=== PATIENT | male | born 1940 | race African-American/Black ===

== ENCOUNTER 2018-09-30 16:34 | Inpatient (IN) | payer MEDICARE, OTHER ==
[~2018-09-30] VITALS: Ht 165.1 cm; Wt 60.8 kg
[~2018-09-30 16:34] MED LIST: AMLODIPINE BESY10 MG ORAL; CLONIDINE 0.2M0.2 MG PO; CLONIDINE HCL0.2 MG PO; NEPHROVITE1 TAB ORAL; NORCO 5-325 TA1 EAC1 ORAL; TAMSULOSIN HCL0.4 MG ORAL
[2018-09-30 16:35] VITALS: BP_SYST 105; BP_SYST 205; BP_DIAS 100
--- NOTE | 2018-09-30 16:35 | NUR ---
ED Nurse Note: Patient arrived ambulatory. No s/sx of distress. with oxygen saturation of 100% on room air. Came in ER for complain of nausea, vomiting x4 today and dizziness that started at around 6AM today. Patient also noted with elevated BP. Denies any form of pain at this time.
--- NOTE | 2018-09-30 17:06 | NUR ---
ED Nurse Note: IV line started and blood drawn and sent to lab. Patient is off unit at this time for CT scan.
[2018-09-30 17:13] LABS: BASOPHILS % (AUTO) 1.5 % (0.0-2.0); EOSINOPHILS % (AUTO) 0.8 % (0.0-3.0); HEMATOCRIT 39.9 % (42.0-52.0); HEMOGLOBIN 12.9 G/DL (14.2-18.0); LYMPHOCYTES % (AUTO) 6.7 % (20.0-45.0); MEAN CORPUSCULAR VOLUME 89 FL (80-99); MONOCYTES % (AUTO) 9.1 % (1.0-10.0); NEUTROPHILS % (AUTO) 81.9 % (45.0-75.0); PLATELET COUNT 217 K/UL (150-450); RED BLOOD COUNT 4.48 M/UL (4.70-6.10); RED CELL DISTRIBUTION WIDTH 14.2 % (11.6-14.8); WHITE BLOOD COUNT 10.7 K/UL (4.8-10.8)
[2018-09-30 17:29] VITALS: BP 210/92
[2018-09-30 17:29] LABS: ANION GAP 15 mmol/L (5-15); BLOOD UREA NITROGEN 36 mg/dL (7-18); CALCIUM 9.2 MG/DL (8.5-10.1); CARBON DIOXIDE 27 MMOL/L (21-32); CHLORIDE 100 MMOL/L (98-107); CREATININE 12.7 MG/DL (0.55-1.30); POTASSIUM 3.7 MMOL/L (3.5-5.1); SODIUM 142 MMOL/L (136-145)
--- NOTE | 2018-09-30 17:38 | NUR ---
ED Nurse Note: ERMD NOTIFIED TROPONIN 0.204
[2018-09-30 17:52] LABS: ALANINE AMINOTRANSFERASE 18 U/L (12-78); ALBUMIN 3.8 G/DL (3.4-5.0); ALBUMIN/GLOBULIN RATIO 0.9 (1.0-2.7); ALKALINE PHOSPHATASE 43 U/L (46-116); ASPARTATE AMINO TRANSFERASE 22 U/L (15-37); BILIRUBIN,TOTAL 0.4 MG/DL (0.2-1.0); CKMB 3.1 NG/ML (0.0-3.6); CREATINE KINASE 293 U/L (26-308)
[2018-09-30] MEDS ORDERED: Labetalol 200mg tab ORAL ONE (18:15)
[2018-09-30 18:39] VITALS: BP 179/94
--- NOTE | 2018-09-30 19:15 | NUR ---
HAND-OFF: Report given to Dragan Stearns RN. Patient BP improved. No s/sx of distress. HR improved although still SR:[address]:101. Current BP:152/80.
--- NOTE | 2018-09-30 19:18 | NUR ---
ED Nurse Note: Received patient from ESA Singh. Pt sitting comfortably. AO4. NAD VSS. Family at bedside
[2018-09-30 19:40] VITALS: BP 176/96
--- NOTE | 2018-09-30 19:40 | NUR ---
NURSE NOTES: Received patient from Dragan Stearns RN via [facility]. Patients shows no signs of acute distress. Respiration even and non labored on room air. IV line patent and intact. VS stable. Placed on monitor and storage bin tender. Oriented to room and unit. Bed in lowest position. All needs attended and met. Call light within reach. Will notify MD for admission order
--- NOTE | 2018-09-30 19:40 | NUR ---
TRANSFER TO FLOOR: Patient transferred to Telemetry 220-2 as ordered, per MD Winifred . Report given to ESA Naidu. Belongings and medications given to receiveing RN. Patient in stable condition.
--- NOTE | 2018-09-30 20:07 | Emergency Room Report ---
History of Present Illness General Chief Complaint: Hypertension Source: Patient Present Illness Allergies: Coded Allergies: No Known Allergies (Unverified , 06/16/14) Patient History Past Medical History: HTN, renal disease, dialysis Past Surgical History: none Pertinent Family History: none Social History: Denies: smoking, alcohol use, drug use Immunizations: UTD Reviewed Nursing Documentation: PMH: Agreed; PSxH: Agreed Nursing Documentation-PMH Past Medical History: No History, Except For Hx Cardiac Problems: Yes Hx Hypertension: Yes Hx Cancer: No Hx Gastrointestinal Problems: No Hx Dialysis: Yes - ([id number]), SHUNT LEFT UPPER ARM Hx Neurological Problems: No Review of Systems All Other Systems: negative except mentioned in HPI Physical Exam Vital Signs Date Time Temp Pulse Resp B/P (MAP) Pulse Ox O2 Delivery O2 Flow Rate FiO2 09/30/18 16:26 97.7 100 20 220/100 96 Room Air Sp02 EP Interpretation: reviewed, normal General Appearance: no apparent distress, alert, GCS 15, non-toxic Head: normocephalic, atraumatic Eyes: bilateral eye normal inspection, bilateral eye PERRL ENT: hearing grossly normal, normal pharynx, no angioedema, normal voice Neck: full range of motion, supple/symm/no masses Respiratory: chest non-tender, lungs clear, normal breath sounds, speaking full sentences Cardiovascular #1: regular rate, rhythm, no edema Cardiovascular #2: 2+ carotid (R), 2+ carotid (L), 2+ radial (R), 2+ radial (L) , 2+ dorsalis pedis (R), 2+ dorsalis pedis (L) Gastrointestinal: normal bowel sounds, non tender, soft, non-distended, no guarding, no rebound Rectal: deferred Genitourinary: normal inspection, no CVA tenderness Musculoskeletal: back normal, gait/station normal, normal range of motion, non- tender Neurologic: alert, oriented x3, responsive, motor strength/tone normal, sensory intact, speech normal Psychiatric: judgement/insight normal, memory normal, mood/affect normal, no suicidal/homicidal ideation Reflexes: 3+ bicep (R), 3+ bicep (L), 3+ tricep (R), 3+ tricep (L), 3+ knee (R) , 3+ knee (L) Skin: normal color, no rash, warm/dry, well hydrated Lymphatic: no adenopathy Medical Decision Making Diagnostic Impression: Primary Impression: End-stage renal disease Additional Impression: Hypertension Qualified Codes: I10 - Essential (primary) hypertension ER Course Hospital Course 78 yo M presents with nausea, elevated BP, missed dialysis Differential diagnoses include: TN/unstable angina, arrythmia, dehydration, CVA/ TIA Clinical course Patient placed on stretcher. on tableau architect. After initial history and physical I ordered labs, EKG, chest x-ray, zofran, CT labs reviewed- no leukocytosis, hemoglobin/hematocrit ok, BUN/Cr elevated, trop 0.204 EKG- sinus tachycardia, no acute ischemic changes interpreted by me Chest x-ray- no acute process CT brain-unremarkable Patient initially given hydralazine, labetalol with blood pressure and heart rate improved. Patient has no chest pain. No acute ischemic changes on EKG. Troponin elevation likely troponin leak Case discussed with Dr. Harrington and he agreed to accept the patient to his service for further care and support I. I feel this is a highly complex case requiring extensive working including EKG/Rhythm strip, Xray/CT/US, Blood/urine lab work, repeat exams while in ED, and administration of strong opiates/narcotics for pain control, admission to hospital or close patient follow up. Diagnosis - ESRD, hypertension admitted to telemetry in serious condition Labs Test 09/30/18 16:54 White Blood Count 10.7 K/UL (4.8-10.8) Red Blood Count 4.48 M/UL (4.70-6.10) Hemoglobin 12.9 G/DL (14.2-18.0) Hematocrit 39.9 % (42.0-52.0) Mean Corpuscular Volume 89 FL (80-99) Mean Corpuscular Hemoglobin 28.8 PG (27.0-31.0) Mean Corpuscular Hemoglobin Concent 32.3 G/DL (32.0-36.0) Red Cell Distribution Width 14.2 % (11.6-14.8) Platelet Count 217 K/UL (150-450) Mean Platelet Volume 6.9 FL (6.5-10.1) Neutrophils (%) (Auto) 81.9 % (45.0-75.0) Lymphocytes (%) (Auto) 6.7 % (20.0-45.0) Monocytes (%) (Auto) 9.1 % (1.0-10.0) Eosinophils (%) (Auto) 0.8 % (0.0-3.0) Basophils (%) (Auto) 1.5 % (0.0-2.0) Sodium Level 142 MMOL/L (136-145) Potassium Level 3.7 MMOL/L (3.5-5.1) Chloride Level 100 MMOL/L (98-107) Carbon Dioxide Level 27 MMOL/L (21-32) Anion Gap 15 mmol/L (5-15) Blood Urea Nitrogen 36 mg/dL (7-18) Creatinine 12.7 MG/DL (0.55-1.30) Estimat Glomerular Filtration Rate mL/min (>60) Glucose Level 130 MG/DL (74-106) Calcium Level 9.2 MG/DL (8.5-10.1) Total Bilirubin 0.4 MG/DL (0.2-1.0) Aspartate Amino Transf (AST/SGOT) 22 U/L (15-37) Alanine Aminotransferase (ALT/SGPT) 18 U/L (12-78) Alkaline Phosphatase 43 U/L (46-116) Total Creatine Kinase 293 U/L (26-308) Creatine Kinase MB 3.1 NG/ML (0.0-3.6) Creatine Kinase MB Relative Index 1.0 Troponin I 0.204 ng/mL (0.000-0.056) Pro-B-Type Natriuretic Peptide 79481 pg/mL (0-125) Total Protein 7.8 G/DL (6.4-8.2) Albumin 3.8 G/DL (3.4-5.0) Globulin 4.0 g/dL Albumin/Globulin Ratio 0.9 (1.0-2.7) EKG Diagnostic Results Rate: tachycardiac Rhythm: NSR ST Segments: no acute changes ASA given to the pt in ED: No Rhythm Strip Diag. Results EP Interpretation: yes Rhythm: NSR, no PVC's, no ectopy Chest X-Ray Diagnostic Results Chest X-Ray Diagnostic Results : Chest X-Ray Ordered: Yes # of Views/Limited/Complete: 1 View Indication: Other EP Interpretation: Yes Interpretation: no consolidation, no effusion, no pneumothorax, no acute cardiopulmonary disease Impression: No acute disease Electronically Signed by: Electronically signed by El Young MD CT/MRI/US Diagnostic Results CT/MRI/US Diagnostic Results : Imaging Test Ordered: CT Head Impression no acute process Last Vital Signs Date Time Temp Pulse Resp B/P (MAP) Pulse Ox O2 Delivery O2 Flow Rate FiO2 09/30/18 18:39 111 20 179/94 100 Room Air 09/30/18 16:35 97.7 Status: improved Disposition: ADMITTED INPATIENT Condition: Serious Referrals: Richmond David MD (PCP) El Young MD Sep 30, 2018 20:07
--- NOTE | 2018-09-30 20:31 | NUR ---
NURSE NOTES: Admission orders received and carried out.
[2018-09-30] MEDS ORDERED: Lomotil 2.5mg tab ORAL PRN (21:00)
[2018-09-30] MEDS ORDERED: Norco 5mg/325mg tab ORAL PRN (21:00)
[2018-09-30] MEDS ORDERED: Acetaminophen 500mg (ES) tab ORAL PRN (21:00)
[2018-09-30] MEDS: Labetalol 200mg tab ORAL SCH (21:32)
[2018-09-30] MEDS: Heparin 5000 units/ml inj SUBQ SCH (21:33)
[2018-10-01] VITALS (7 sets, daily range): BP systolic 150–173; BP diastolic 82–100
[2018-10-01] MEDS ORDERED: Heparin Sod 1000 units/ml 10ml IV PRN
--- NOTE | 2018-10-01 04:20 | NUR ---
NURSE NOTES: Called and left a message for Dr. Monson regarding patients current BP 183/95, pulse 83. Awaiting call back.
--- NOTE | 2018-10-01 07:50 | NUR ---
HAND-OFF: Report given to ESA Montoya.
--- NOTE | 2018-10-01 07:55 | NUR ---
NURSE NOTES: Received patient from ESA Naidu in bed resting with no signs of acute distress. Respiration even and unlabored. Patient is on room air. IV line patent and intact. alarm security or surveillance monitor in place. Bed in lowest position. Call light is within reach. Will continue with the plan of care.
[2018-10-01 08:30] LABS: BASOPHILS % (AUTO) 0.9 % (0.0-2.0); EOSINOPHILS % (AUTO) 0.6 % (0.0-3.0); HEMATOCRIT 37.9 % (42.0-52.0); HEMOGLOBIN 12.4 G/DL (14.2-18.0); MEAN CORPUSCULAR VOLUME 89 FL (80-99); MONOCYTES % (AUTO) 7.3 % (1.0-10.0); NEUTROPHILS % (AUTO) 83.2 % (45.0-75.0); PLATELET COUNT 184 K/UL (150-450); RED BLOOD COUNT 4.27 M/UL (4.70-6.10); RED CELL DISTRIBUTION WIDTH 14.6 % (11.6-14.8); WHITE BLOOD COUNT 8.7 K/UL (4.8-10.8)
--- NOTE | 2018-10-01 08:40 | Diagnostic Imaging Report ---
Indications: Dizziness, nausea, vomiting, hypertension Technique: Spiral acquisitions obtained through the brain. Angled axial and coronal 5 x 5 mm slices were reconstructed. Total dose length product 1383.12 mGycm. CTDI vol(s) 70.38 mGy. Dose reduction achieved using automated exposure control Comparison: None. Findings: There is age-related enlargement of the ventricles and extra axial CSF spaces. There is periventricular deep white matter low-attenuation, consistent with chronic ischemic change. 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 No acute intracranial hemorrhage or edema. No mass effect or midline shift. The calvarium is intact. The mastoids are clear. The sinuses are clear. The orbits demonstrate evidence of prior bilateral cataract surgery. Impression: Chronic and age-related changes. Negative for acute intracranial bleed or mass effect This agrees with the preliminary interpretation provided overnight by Dr. Mora The CT scanner at [facility] is accredited by the [employer] and the scans are performed using protocols designed to limit radiation exposure to as low as reasonably achievable to attain images of sufficient resolution adequate for diagnostic evaluation.
--- NOTE | 2018-10-01 08:42 | Diagnostic Imaging Report ---
Indication: Chest pain Technique: One view of the chest Comparison: none Findings: The heart is borderline enlarged with a left ventricular hypertrophy configuration. Lungs and pleural spaces are clear. The aorta is tortuous and ectatic. Surgical clips are seen in the left axilla Impression: No acute process Borderline cardiomegaly
[2018-10-01] MEDS: Labetalol 200mg tab ORAL SCH ×2 (09:05→21:08)
[2018-10-01] MEDS: Heparin 5000 units/ml inj SUBQ SCH ×2 (09:07→21:08)
[2018-10-01 09:38] LABS: ANION GAP 20 mmol/L (5-15); BLOOD UREA NITROGEN 42 mg/dL (7-18); CALCIUM 8.8 MG/DL (8.5-10.1); CARBON DIOXIDE 20 MMOL/L (21-32); CHLORIDE 100 MMOL/L (98-107); CREATININE 14.3 MG/DL (0.55-1.30); POTASSIUM 3.9 MMOL/L (3.5-5.1); SODIUM 140 MMOL/L (136-145)
[2018-10-01] MEDS: Milk of Magnesia 30ml Ud ORAL SCH ×2 (11:22→21:09)
[2018-10-01] MEDS: Sennosides 8.6mg tab ORAL SCH ×2 (11:22→21:08)
--- NOTE | 2018-10-01 12:00 | NUR ---
Patient's BP is elevated 173/90. aware. Will continue to monitor.
--- NOTE | 2018-10-01 14:10 | GI Initial Consult Note ---
History of Present Illness General Date patient seen: Oct 01, 2018 Time patient seen: 14:08 Reason for Hospitalization: Hypertension Referring physician: MORENO Reason for Consultation: Abdominal pain Present Illness HPI GI consulted for reported abdominal pain. Patient seen, awake alert and oriented x4 with no active signs or symptoms of nausea vomiting or diarrhea. According to the patient, he does not have abdominal pain instead states that he has an upset stomach after p.o. intake. Patient denies any emesis, hematemesis or coffee-ground. In addition the patient has complaint of constipation. Abdomen is soft, nontender, nondistended. Patient currently is pending an ultrasound. Labs reviewed, patient presents today with normocytic anemia and elevated troponin levels. His last endoscopy and colonoscopy was approximately 3-4 years ago in which the patient states was unremarkable. Home Meds Reported Medications Hydrocodone Bit/Acetaminophen 5-325* (NORCO 5-325 TABLET*) 1 Each Tablet, 1 TAB ORAL Q4H PRN for For Pain, #30 TAB 1 Refill 07/28/15 Amlodipine Besylate* (AMLODIPINE BESYLATE*) 10 Mg Tablet, 10 MG ORAL DAILY, TAB 07/26/15 Tamsulosin Hcl (TAMSULOSIN HCL*) 0.4 Mg Cap.er.24h, 0.4 MG ORAL BEDTIME, CAP 07/26/15 Vitamin B Cmplx/Vit C/Folic AC (Nephro-Manan Tablet) 1 Tab Tab, 1 TAB ORAL DAILY , #30 TAB 0 Refills 07/26/15 Clonidine HCl (Clonidine HCl) 0.2 Mg Tab, 0.2 MG PO QID, TAB 07/26/15 Med list reviewed/reconciled: Yes Allergies: Coded Allergies: No Known Allergies (Unverified , 06/16/14) Patient History History Provided By: Patient, Medical Record PMH Narrative End-stage renal disease. Hypertensive heart disease. Past Medical History: HTN, renal disease, dialysis Past Surgical History: none Pertinent Family History: none Social History: Denies: smoking, alcohol use, drug use Immunizations: UTD Reviewed Nursing Documentation: PMH: Agreed; PSxH: Agreed Nursing Documentation-PM Past Medical History: No History, Except For Hx Cardiac Problems: Yes Hx Hypertension: Yes Hx Cancer: No Hx Gastrointestinal Problems: No Hx Dialysis: Yes - ([id number]), SHUNT LEFT UPPER ARM Hx Neurological Problems: No Social History: Denies: smoking, alcohol use, drug use, other Review of Systems All Other Systems: negative except mentioned in HPI Physical Exam Vital Signs Date Time Temp Pulse Resp B/P (MAP) Pulse Ox O2 Delivery O2 Flow Rate FiO2 09/30/18 16:26 97.7 100 20 220/100 96 Room Air Sp02 EP Interpretation: reviewed, normal Labs Laboratory Tests Test 09/30/18 16:54 10/01/18 07:30 White Blood Count 10.7 K/UL (4.8-10.8) 8.7 K/UL (4.8-10.8) Red Blood Count 4.48 M/UL (4.70-6.10) L 4.27 M/UL (4.70-6.10) L Hemoglobin 12.9 G/DL (14.2-18.0) L 12.4 G/DL (14.2-18.0) L Hematocrit 39.9 % (42.0-52.0) L 37.9 % (42.0-52.0) L Mean Corpuscular Volume 89 FL (80-99) 89 FL (80-99) Mean Corpuscular Hemoglobin 28.8 PG (27.0-31.0) 29.1 PG (27.0-31.0) Mean Corpuscular Hemoglobin Concent 32.3 G/DL (32.0-36.0) 32.7 G/DL (32.0-36.0) Red Cell Distribution Width 14.2 % (11.6-14.8) 14.6 % (11.6-14.8) Platelet Count 217 K/UL (150-450) 184 K/UL (150-450) Mean Platelet Volume 6.9 FL (6.5-10.1) 7.0 FL (6.5-10.1) Neutrophils (%) (Auto) 81.9 % (45.0-75.0) H 83.2 % (45.0-75.0) H Lymphocytes (%) (Auto) 6.7 % (20.0-45.0) L 8.0 % (20.0-45.0) L Monocytes (%) (Auto) 9.1 % (1.0-10.0) 7.3 % (1.0-10.0) Eosinophils (%) (Auto) 0.8 % (0.0-3.0) 0.6 % (0.0-3.0) Basophils (%) (Auto) 1.5 % (0.0-2.0) 0.9 % (0.0-2.0) Sodium Level 142 MMOL/L (136-145) 140 MMOL/L (136-145) Potassium Level 3.7 MMOL/L (3.5-5.1) 3.9 MMOL/L (3.5-5.1) Chloride Level 100 MMOL/L (98-107) 100 MMOL/L (98-107) Carbon Dioxide Level 27 MMOL/L (21-32) 20 MMOL/L (21-32) L Anion Gap 15 mmol/L (5-15) 20 mmol/L (5-15) H Blood Urea Nitrogen 36 mg/dL (7-18) H 42 mg/dL (7-18) H Creatinine 12.7 MG/DL (0.55-1.30) H 14.3 MG/DL (0.55-1.30) H Estimat Glomerular Filtration Rate mL/min (>60) mL/min (>60) Glucose Level 130 MG/DL (74-106) H 107 MG/DL (74-106) H Calcium Level 9.2 MG/DL (8.5-10.1) 8.8 MG/DL (8.5-10.1) Total Bilirubin 0.4 MG/DL (0.2-1.0) Aspartate Amino Transf (AST/SGOT) 22 U/L (15-37) Alanine Aminotransferase (ALT/SGPT) 18 U/L (12-78) Alkaline Phosphatase 43 U/L (46-116) L Total Creatine Kinase 293 U/L (26-308) Creatine Kinase MB 3.1 NG/ML (0.0-3.6) Creatine Kinase MB Relative Index 1.0 Troponin I 0.204 ng/mL (0.000-0.056) Pro-B-Type Natriuretic Peptide 30135 pg/mL (0-125) H Total Protein 7.8 G/DL (6.4-8.2) Albumin 3.8 G/DL (3.4-5.0) Globulin 4.0 g/dL Albumin/Globulin Ratio 0.9 (1.0-2.7) L General Appearance: well appearing, no apparent distress, alert Head: normocephalic EENT: PERRL/EOMI, normal ENT inspection Neck: supple Respiratory: normal breath sounds, no respiratory distress Cardiovascular: normal rate Gastrointestinal: normal inspection, non tender, soft, normal bowel sounds, non -distended Rectal: deferred Genitourinary: deferred Musculoskeletal: normal inspection, back normal Neurologic: normal inspection, alert, oriented x3, responsive Psychiatric: normal inspection, judgement/insight normal, memory normal Skin: normal inspection, normal color, no rash, warm/dry, palpation normal, well hydrated Lymphatic: normal inspection, no adenopathy Current Medications Current Medications Medications (Trade) Dose Ordered Sig/Roel Route PRN Reason Start Time Stop Time Status Last Admin Dose Admin Acetaminophen (Tylenol) 500 mg Q6H PRN ORAL Mild Pain/Temp > 100.5 09/30/18 21:00 10/30/18 20:59 Acetaminophen/ Hydrocodone Bitart ([place] 5/325) 1 tab Q6H PRN ORAL pain 4-10 09/30/18 21:00 10/07/18 20:59 Diphenoxylate HCl/ Atropine (Lomotil) 2.5 mg Q6H PRN ORAL Diarrhea 09/30/18 21:00 10/30/18 20:59 Heparin Sodium (Porcine) (Heparin 5000 units/ml) 5,000 units EVERY 12 HOURS SUBQ 09/30/18 21:00 10/30/18 20:59 10/01/18 09:07 Heparin Sodium (Porcine) (Heparin Sod 1000 units/ml 10ml) 2,000 unit ONCE PRN IV dialysis 10/01/18 00:00 10/01/18 23:59 Labetalol HCl (Normodyne) 500 mg Q12HR ORAL 10/01/18 21:00 10/30/18 20:59 Magnesium Hydroxide (Mom) 30 ml TID ORAL 10/01/18 12:00 10/31/18 11:59 10/01/18 11:22 Ondansetron HCl (Zofran) 4 mg Q6H PRN IVP Nausea & Vomiting 09/30/18 21:00 10/30/18 20:59 Sennosides (Senokot) 8.6 mg BID ORAL 10/01/18 11:15 10/31/18 11:14 10/01/18 11:22 Sodium Chloride 1,000 ml @ 500 mls/hr Q2H PRN IVLG sbp<90 during hd 10/01/18 00:00 10/01/18 23:59 GI: Plan Problems: (1) Constipation (2) End-stage renal disease (3) Iron deficiency anemia secondary to blood loss (chronic) (4) Dialysis AV fistula malfunction (5) ESRD needing dialysis Plan Patient will be given GI cocktail as needed for his dyspepsia. Continue Senokot twice daily as ordered Monitor for normal bowel movements anemia work up OB stool r/o GI bleed monitor H&H, prn transfusions bowel regime ppi fu labs Discussed with Dr. Gregg. Thank you for this patient referral, we will follow. The patient was seen and examined at bedside and all new and available data was reviewed in the patients chart. I agree with the above findings, impression and plan. (Patient seen earlier today. Signature stamp does not reflect patient encounter time.). - MD Graciela GomezA[facility]PR[facility] ARCHITECT Oct 01, 2018 14:10
[2018-10-01] MEDS ORDERED: GI Cocktail 50ml ORAL PRN ×2 (15:00→15:30)
--- NOTE | 2018-10-01 15:15 | History and Physical Report ---
DATE OF ADMISSION: 09/30/2018 CHIEF COMPLAINT: Upper epigastric pain and chest discomfort with belching. HISTORY OF PRESENT ILLNESS: This is an 78-year-old male who is on dialysis every Sunday, Sunday, Sunday. The patient started dialyzing with me this week. He has multiple medical problems. The patient called my office requesting to be admitted for intolerable upper abdominal pain with chest pressure related to inability to defecate with constipation. He presented to the emergency department last night. PAST MEDICAL HISTORY: 1. End-stage renal failure, on dialysis every Sunday, Sunday, Sunday. 2. Hypertensive cardiovascular disease. MEDICATIONS: [place] p.r.n., amlodipine, clonidine, tamsulosin, vitamin B. FAMILY HISTORY: Unremarkable. REVIEW OF SYSTEMS: HEENT: Hearing and eyesight are normal. ENDOCRINE: No history of diabetes, thyroid, or adrenal problems. RESPIRATORY: Denies shortness of breath, cough, or hemoptysis. CARDIOVASCULAR: He denies chest pain or palpitations. GASTROINTESTINAL: Please refer to history of present illness. NEUROLOGIC: No history of stroke, syncope, or Parkinson disease. PHYSICAL EXAMINATION: GENERAL: This is an elderly, slender male who is in severe abdominal pain. VITAL SIGNS: Blood pressure 170/93, pulse 85 and regular, respirations 20, and temperature 97 oral. HEENT: The head is normocephalic and atraumatic. Pupils are equal, round, and reactive to light and accommodation consensually. NECK: Supple. Trachea midline. There was no lymphadenopathy or thyromegaly. LUNGS: Clear to auscultation and percussion. HEART: Regular rate and rhythm without rubs, murmurs, or gallops. ABDOMEN: Soft and nontender. Bowel sounds were active. EXTREMITIES: No clubbing, cyanosis, or edema. He has a left upper arm tortuous AV fistula. LABORATORY AND ANCILLARY DATA: CBC within normal limits. Serum chemistry, BUN 42, creatinine 14.3. Troponin level 0.204. EKG sinus tachycardia with premature atrial complexes, inferior infarct, age undetermined. Imaging reports, head CT, no acute disease. Chest x-ray, no acute process. ASSESSMENT: 1. Obstipation. 2. End-stage renal failure, on dialysis every Sunday, Sunday, Sunday. 3. Hypertensive cardiovascular disease. PLAN: 1. Cathartic agents. 2. Consider GI consult. 3. Control blood pressure. 4. Hemodialysis. Richmond David M.D. DR: SHEILA JOB#: [id number] CC:
--- NOTE | 2018-10-01 16:54 | Diagnostic Imaging Report ---
Indication: Abdominal pain, abnormal renal function tests, dialysis patient Technique: Oscar-scale and duplex images of the upper abdomen were obtained. Doppler interrogation of the hepatic and pancreatic vessels. Comparison: none Findings: Gallbladder is unremarkable, without stones, wall thickening, nor pericholecystic fluid. Sonographic Galeas's sign is negative. Common bile duct measures 2 mm in diameter. No intrahepatic biliary ductal dilatation. Liver demonstrates normal echogenicity, no focal abnormality. Portal vein and hepatic veins are patent. Pancreas is incompletely visualized due to body habitus, visualized portions are unremarkable. Spleen is unremarkable. Left kidney measures 9.8 cm in length. Right kidney measures 10.2 cm length. Both kidneys demonstrate increased echogenicity There is no hydronephrosis. There are bilateral renal cysts . Non-aneurysmal abdominal aorta . No free intraperitoneal fluid Impression: Negative for gallstones or dilated ducts Bilateral increased renal echogenicity, consistent with none history of chronic renal disease Incidental finding bilateral renal cysts Note inability to visualize portions of the pancreas
--- NOTE | 2018-10-01 18:45 | NUR ---
CASE MANAGEMENT: REVIEW 78/F BIBA FROM CC: HYPERTENSION SI: HYPERTENSIVE URGENCY . ESRD T 98.2 HR RR 85 RR 20 BP 220/100 SAT 96% ROOM AIR BUN 36 CR 12.7 ALK 43 TROPONIN I 0.201 BNP 06286 IS: HYDRALAZINE IV X1 LABETALOL PO X1 PATIENT ADMITTED TO TELEMETRY UNIT 09/30/2018 DCP: PATIENT IS FROM HOME
--- NOTE | 2018-10-01 19:30 | NUR ---
NURSE NOTES: Report received from Lindsay SEE. Pt is resting in bed in stable condition. Pt is awake, alert, and oriented x4. Pt is on room air and breathing is even and unlabored. No acute distress noted. IV site is asymptomatic, patent, and intact. AV shunt noted in DANIE. security system analyst at bedside, Young, and pt is currently receiving HD per orders. Bed is placed in lowest position with brake engaged, side rails up x3, and bed alarm on. Call light and side table are within reach. Will continue to monitor.
--- NOTE | 2018-10-01 19:48 | NUR ---
HAND-OFF: Report given to ESA Humphrey. Patient is in stable condition.
--- NOTE | 2018-10-01 21:00 | NUR ---
NURSE NOTES: Per Presley, HD RN, 2L out during dialysis today.
[2018-10-02] VITALS: BP 156/80
--- NOTE | 2018-10-02 | NUR ---
NURSE NOTES: OB stool collected and taken to lab.
[2018-10-02 04:00] VITALS: BP 139/82
--- NOTE | 2018-10-02 07:28 | NUR ---
HAND-OFF: Report given to Lindsay SEE. Pt is resting in bed in stable condition. No acute distress noted. Endorsed plan of care.
--- NOTE | 2018-10-02 07:30 | NUR ---
NURSE NOTES: Received patient from ESA Humphrey in bed alert, awake and oriented X4. Denies any pain. no s/s of SOB, or any acute distress. groundwater monitoring technician in place. IV is intact and patent. Bed is in lowest position, bedside rails up X2, brakes engaged for safety. Call light is within reach. Will continue with the plan of care.
[2018-10-02 08:00] VITALS: BP 149/73
[2018-10-02] MEDS: Milk of Magnesia 30ml Ud ORAL SCH ×3 (08:17→18:54)
[2018-10-02] MEDS: Labetalol 200mg tab ORAL SCH ×2 (08:17→21:39)
[2018-10-02] MEDS: Sennosides 8.6mg tab ORAL SCH ×2 (08:17→18:54)
[2018-10-02] MEDS: Heparin 5000 units/ml inj SUBQ SCH ×2 (08:19→21:36)
[2018-10-02 09:03] LABS: ALANINE AMINOTRANSFERASE 13 U/L (12-78); ALBUMIN 3.7 G/DL (3.4-5.0); ALBUMIN/GLOBULIN RATIO 0.8 (1.0-2.7); ALKALINE PHOSPHATASE 52 U/L (46-116); ANION GAP 13 mmol/L (5-15); ASPARTATE AMINO TRANSFERASE 28 U/L (15-37); BILIRUBIN,TOTAL 0.5 MG/DL (0.2-1.0); BLOOD UREA NITROGEN 27 mg/dL (7-18); CALCIUM 9.3 MG/DL (8.5-10.1); CARBON DIOXIDE 29 MMOL/L (21-32); CHLORIDE 99 MMOL/L (98-107); CREATININE 10.6 MG/DL (0.55-1.30); FERRITIN 695 NG/ML (8-388); PHOSPHORUS 4.7 MG/DL (2.5-4.9); SODIUM 140 MMOL/L (136-145)
[2018-10-02 09:16] LABS: % IRON SATURATION 46 % (15-50); IRON 84 ug/dL (50-175); TOTAL IRON BINDING CAPACITY 182 ug/dL (250-450)
[2018-10-02 10:13] LABS: BASOPHILS % (AUTO) 0.8 % (0.0-2.0); HEMATOCRIT 40.8 % (42.0-52.0); LYMPHOCYTES % (AUTO) 10.5 % (20.0-45.0); MEAN CORPUSCULAR VOLUME 89 FL (80-99); MONOCYTES % (AUTO) 7.4 % (1.0-10.0); NEUTROPHILS % (AUTO) 80.4 % (45.0-75.0); PLATELET COUNT 223 K/UL (150-450); RED BLOOD COUNT 4.58 M/UL (4.70-6.10); RED CELL DISTRIBUTION WIDTH 14.5 % (11.6-14.8); WHITE BLOOD COUNT 7.6 K/UL (4.8-10.8)
--- NOTE | 2018-10-02 10:41 | Nephrology Progress Note ---
Assessment/Plan Plan Abd. Pain - w/u so far negative. Seen by GI. Planning endoscopies. ESRD - HD tomorrow. Subjective Subjective Had 2 BMs. Feeling better. Still has abd pain. No bleeding. Objective Objective Last 24 Hour Vital Signs Date Time Temp Pulse Resp B/P (MAP) Pulse Ox O2 Delivery O2 Flow Rate FiO2 10/02/18 09:00 Room Air 10/02/18 08:17 69 149/73 10/02/18 08:00 97.9 69 20 149/73 (98) 98 10/02/18 08:00 65 10/02/18 04:00 97.9 74 20 139/82 (101) 99 10/02/18 04:00 71 10/02/18 00:00 98.6 60 20 156/80 (105) 95 10/02/18 00:00 64 10/01/18 21:08 62 150/82 10/01/18 21:00 Room Air 10/01/18 20:00 97.0 62 20 150/82 (104) 100 10/01/18 20:00 79 10/01/18 16:00 98.0 79 20 173/90 (117) 97 10/01/18 16:00 79 10/01/18 12:00 79 10/01/18 12:00 98.2 73 20 170/89 (116) 100 Intake and Output 10/01/18 10/02/18 19:00 07:00 Intake Total 360 ml 120 ml Balance 360 ml 120 ml Intake Oral 360 ml 120 ml # Bowel Movements 1 1 Laboratory Tests 10/02/18 00:00: Stool Occult Blood [Pending] 10/02/18 07:49: White Blood Count 7.6, Red Blood Count 4.58L, Hemoglobin 13.0L, Hematocrit 40.8L , Mean Corpuscular Volume 89, Mean Corpuscular Hemoglobin 28.5, Mean Corpuscular Hemoglobin Concent 32.0, Red Cell Distribution Width 14.5, Platelet Count 223, Mean Platelet Volume 7.5, Neutrophils (%) (Auto) 80.4H, Lymphocytes ( %) (Auto) 10.5L, Monocytes (%) (Auto) 7.4, Eosinophils (%) (Auto) 1.0, Basophils (%) (Auto) 0.8, Reticulocyte Count [Pending], Prothrombin Time 10.7, Prothromb Time International Ratio 1.0, Activated Partial Thromboplast Time 34H , Sodium Level 140, Potassium Level 4.0, Chloride Level 99, Carbon Dioxide Level 29, Anion Gap 13, Blood Urea Nitrogen 27H, Creatinine 10.6H, Estimat Glomerular Filtration Rate , Glucose Level 123H, Calcium Level 9.3, Phosphorus Level 4.7, Magnesium Level 2.8H, Iron Level 84, Total Iron Binding Capacity 182L , Percent Iron Saturation 46, Unsaturated Iron Binding 98L, Ferritin 695H, Total Bilirubin 0.5, Aspartate Amino Transf (AST/SGOT) 28, Alanine Aminotransferase (ALT/SGPT) 13, Alkaline Phosphatase 52, Total Protein 8.2, Albumin 3.7, Globulin 4.5, Albumin/Globulin Ratio 0.8L, Carcinoembryonic Antigen [Pending], Vitamin B12 Level 904, Folate 9.2, Thyroid Stimulating Hormone (TSH) 2.217, Free Thyroxine 0.97 Height (Feet): 5 Height (Inches): 8.00 Weight (Pounds): 134 Objective Slender. NAD AVSS CV RR Lungs CTA Abd SNT. BS + E No CCE Richmond David MD Oct 02, 2018 10:41
[2018-10-02] MEDS ORDERED: Heparin Sod 1000 units/ml 10ml IV PRN (10:46)
[2018-10-02 12:00] VITALS: BP 135/78
--- NOTE | 2018-10-02 13:09 | GI Progress Note ---
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 Gregg Assessment/Plan OB stool negative Abdominal pain unknown etiology EGD scheduled for tomorrow. N.p.o. at midnight Hold all blood thinners tonight Patient will be given GI cocktail as needed for his dyspepsia. Continue Senokot twice daily as ordered Monitor for normal bowel movements monitor H&H, prn transfusions bowel regime ppi fu labs The patient was seen and examined at bedside and all new and available data was reviewed in the patients chart. I agree with the above findings, impression and plan. (Patient seen earlier today. Signature stamp does not reflect patient encounter time.). - Rohan Gregg MD Subjective Subjective Patient still complains of abdominal pain, but comes and goes. Objective Last 24 Hour Vital Signs Date Time Temp Pulse Resp B/P (MAP) Pulse Ox O2 Delivery O2 Flow Rate FiO2 10/02/18 09:00 Room Air 10/02/18 08:17 69 149/73 10/02/18 08:00 97.9 69 20 149/73 (98) 98 10/02/18 08:00 65 10/02/18 04:00 97.9 74 20 139/82 (101) 99 10/02/18 04:00 71 10/02/18 00:00 98.6 60 20 156/80 (105) 95 10/02/18 00:00 64 10/01/18 21:08 62 150/82 10/01/18 21:00 Room Air 10/01/18 20:00 97.0 62 20 150/82 (104) 100 10/01/18 20:00 79 10/01/18 16:00 98.0 79 20 173/90 (117) 97 10/01/18 16:00 79 Intake and Output 10/01/18 10/02/18 19:00 07:00 Intake Total 360 ml 120 ml Balance 360 ml 120 ml Intake Oral 360 ml 120 ml # Bowel Movements 1 1 Laboratory Tests Test 10/02/18 00:00 10/02/18 07:49 Stool Occult Blood Negative (NEGATIVE) White Blood Count 7.6 K/UL (4.8-10.8) Red Blood Count 4.58 M/UL (4.70-6.10) L Hemoglobin 13.0 G/DL (14.2-18.0) L Hematocrit 40.8 % (42.0-52.0) L Mean Corpuscular Volume 89 FL (80-99) Mean Corpuscular Hemoglobin 28.5 PG (27.0-31.0) Mean Corpuscular Hemoglobin Concent 32.0 G/DL (32.0-36.0) Red Cell Distribution Width 14.5 % (11.6-14.8) Platelet Count 223 K/UL (150-450) Mean Platelet Volume 7.5 FL (6.5-10.1) Neutrophils (%) (Auto) 80.4 % (45.0-75.0) H Lymphocytes (%) (Auto) 10.5 % (20.0-45.0) L Monocytes (%) (Auto) 7.4 % (1.0-10.0) Eosinophils (%) (Auto) 1.0 % (0.0-3.0) Basophils (%) (Auto) 0.8 % (0.0-2.0) Reticulocyte Count 0.6 % (0.0-2.0) Prothrombin Time 10.7 SEC (9.30-11.50) Prothromb Time International Ratio 1.0 (0.9-1.1) Activated Partial Thromboplast Time 34 SEC (23-33) H Sodium Level 140 MMOL/L (136-145) Potassium Level 4.0 MMOL/L (3.5-5.1) Chloride Level 99 MMOL/L (98-107) Carbon Dioxide Level 29 MMOL/L (21-32) Anion Gap 13 mmol/L (5-15) Blood Urea Nitrogen 27 mg/dL (7-18) H Creatinine 10.6 MG/DL (0.55-1.30) H Estimat Glomerular Filtration Rate mL/min (>60) Glucose Level 123 MG/DL (74-106) H Calcium Level 9.3 MG/DL (8.5-10.1) Phosphorus Level 4.7 MG/DL (2.5-4.9) Magnesium Level 2.8 MG/DL (1.8-2.4) H Iron Level 84 ug/dL (50-175) Total Iron Binding Capacity 182 ug/dL (250-450) L Percent Iron Saturation 46 % (15-50) Unsaturated Iron Binding 98 ug/dL (112-346) L Ferritin 695 NG/ML (8-388) H Total Bilirubin 0.5 MG/DL (0.2-1.0) Aspartate Amino Transf (AST/SGOT) 28 U/L (15-37) Alanine Aminotransferase (ALT/SGPT) 13 U/L (12-78) Alkaline Phosphatase 52 U/L (46-116) Total Protein 8.2 G/DL (6.4-8.2) Albumin 3.7 G/DL (3.4-5.0) Globulin 4.5 g/dL Albumin/Globulin Ratio 0.8 (1.0-2.7) L Carcinoembryonic Antigen Pending Vitamin B12 Level 904 PG/ML (193-986) Folate 9.2 NG/ML (8.6-58.9) Thyroid Stimulating Hormone (TSH) 2.217 uiU/mL (0.358-3.740) Free Thyroxine 0.97 NG/DL (0.76-1.46) Height (Feet): 5 Height (Inches): 8.00 Weight (Pounds): 134 General Appearance: WD/WN, no apparent distress, alert Cardiovascular: normal rate Respiratory/Chest: normal breath sounds, no respiratory distress Abdominal Exam: normal bowel sounds, non tender, soft Extremities: normal range of motion, non-tender Raul Owens NP Oct 02, 2018 13:09
--- NOTE | 2018-10-02 15:52 | NUR ---
RD ASSESSMENT & RECOMMENDATIONS SEE CARE ACTIVITY FOR COMPLETE ASSESSMENT DAILY ESTIMATED NEEDS: Needs based on ESRD, HD/ 60.8kg 25-30 kcals/kg 4489-3617 total kcals 1.2-1.8 g protein/kg 73-110 g total protein 20-22 mL/kg 3923-2709 total fluid mLs NUTRITION DIAGNOSIS: Altered nutrition related lab values R/T ESRD as evidenced by elev creat (10.6), elev BNP (65846). Increased kcal/prot needs R/T renal dysfunction as evicenced by ESRD dx, on HD. CURRENT DIET:RENAL PO DIET RECOMMENDATIONS: RENAL/ texture as tolerated ADDITIONAL RECOMMENDATIONS: * Calibrated bedscale wt post HD for accurate dry wt * A1C for eval of glycemic control- h/o DM * Monitor lytes and renal fxn closely
[2018-10-02 16:00] VITALS: BP 144/74
--- NOTE | 2018-10-02 18:44 | Cardiology Report ---
APPROVED REPORT EKG Measurement Heart [id number] Sinus tachycardia with premature atrial complexes Right bundle branch block Inferior infarct, age undetermined Abnormal ECG
--- NOTE | 2018-10-02 19:47 | NUR ---
HAND-OFF: Report given to ESA Rosas. Patient is in stable condition.
--- NOTE | 2018-10-02 19:48 | NUR ---
NURSE NOTES: Received report from ESA Montoya. Pt is awake and resting in bed. In no acute distress. Bed in lowest position, call light within reach. Will continue plan of care.
[2018-10-02 20:00] VITALS: BP 155/85
[2018-10-03] VITALS: BP 129/88
[2018-10-03 04:00] VITALS: BP 150/79
[2018-10-03 07:15] LABS: BASOPHILS % (AUTO) 0.9 % (0.0-2.0); HEMATOCRIT 38.5 % (42.0-52.0); HEMOGLOBIN 12.5 G/DL (14.2-18.0); LYMPHOCYTES % (AUTO) 11.6 % (20.0-45.0); MEAN CORPUSCULAR VOLUME 90 FL (80-99); MONOCYTES % (AUTO) 10.1 % (1.0-10.0); NEUTROPHILS % (AUTO) 76.4 % (45.0-75.0); PLATELET COUNT 212 K/UL (150-450); RED BLOOD COUNT 4.27 M/UL (4.70-6.10); RED CELL DISTRIBUTION WIDTH 15.1 % (11.6-14.8); WHITE BLOOD COUNT 7.2 K/UL (4.8-10.8)
--- NOTE | 2018-10-03 07:15 | NUR ---
NURSE NOTES: Received report from ESA Rosas. Patient is in stable condition. No acute distress/SOB noted. Still NPO for EGD. Will continue plan of care.
--- NOTE | 2018-10-03 07:15 | NUR ---
HAND-OFF: Report given to ESA Ingram.
[2018-10-03 07:42] LABS: ANION GAP 11 mmol/L (5-15); BLOOD UREA NITROGEN 41 mg/dL (7-18); CALCIUM 9.3 MG/DL (8.5-10.1); CARBON DIOXIDE 33 MMOL/L (21-32); CHLORIDE 100 MMOL/L (98-107); POTASSIUM 4.8 MMOL/L (3.5-5.1); SODIUM 144 MMOL/L (136-145)
[2018-10-03 08:00] VITALS: BP 136/69
[2018-10-03] MEDS: Milk of Magnesia 30ml Ud ORAL SCH ×3 (08:49→18:00)
[2018-10-03] MEDS: Sennosides 8.6mg tab ORAL SCH ×2 (08:49→18:00)
[2018-10-03] MEDS: Heparin 5000 units/ml inj SUBQ SCH (08:50)
[2018-10-03] MEDS: Labetalol 200mg tab ORAL SCH (08:50)
--- NOTE | 2018-10-03 11:04 | Pre-Procedure Note/Attestation ---
Pre-Procedure Note/Attestation Complete Prior to Procedure Planned Procedure: not applicable Procedure Narrative: egd Indications for Procedure Pre-Operative Diagnosis: anemia Attestation I attest that I discussed the nature of the procedure; its benefits; risks and complications; and alternatives (and the risks and benefits of such alternatives ), prior to the procedure, with the patient (or the patient's legal client representative). I attest that, if there was a reasonable possibility of needing a blood transfusion, the patient (or the patient's legal client representative) was given the [facility] standardized written summary, pursuant to the [place] Blood Safety Act ([place] Health and Safety Code # 1645, as amended). I attest that I re-evaluated the patient just prior to the surgery and that there has been no change in the patient's H&P, except as documented below: Rohan Gregg MD Oct 03, 2018 11:04
--- NOTE | 2018-10-03 11:20 | Nephrology Progress Note ---
Assessment/Plan Plan Abd. Pain - w/u so far negative. Seen by GI. Planning endoscopies. ESRD - HD today. DC home after HD. Subjective Subjective Was supposed to have EGD. Pt. ate. Cancelled. Objective Objective Last 24 Hour Vital Signs Date Time Temp Pulse Resp B/P (MAP) Pulse Ox O2 Delivery O2 Flow Rate FiO2 10/03/18 09:00 Room Air 10/03/18 08:50 67 136/69 10/03/18 08:00 97.2 67 20 136/69 (91) 97 10/03/18 04:00 69 10/03/18 04:00 97.5 89 19 150/79 (102) 98 10/03/18 00:00 61 10/03/18 00:00 97.5 61 19 129/88 (102) 97 10/02/18 21:39 68 147/81 10/02/18 21:00 Room Air 10/02/18 20:00 97.7 60 18 155/85 (108) 97 10/02/18 20:00 60 10/02/18 16:00 98.1 66 20 144/74 (97) 97 10/02/18 16:00 67 10/02/18 12:00 72 10/02/18 12:00 98.1 66 20 135/78 (97) 100 Intake and Output 10/02/18 10/03/18 19:00 07:00 Output Total 800 ml Balance -800 ml Output Urine Total 800 ml # Voids 1 # Bowel Movements 1 Laboratory Tests 10/03/18 06:30: White Blood Count 7.2, Red Blood Count 4.27L, Hemoglobin 12.5L, Hematocrit 38.5L , Mean Corpuscular Volume 90, Mean Corpuscular Hemoglobin 29.4, Mean Corpuscular Hemoglobin Concent 32.6, Red Cell Distribution Width 15.1H, Platelet Count 212, Mean Platelet Volume 7.6, Neutrophils (%) (Auto) 76.4H, Lymphocytes (%) (Auto) 11.6L, Monocytes (%) (Auto) 10.1H, Eosinophils (%) (Auto ) 1.0, Basophils (%) (Auto) 0.9, Prothrombin Time 10.4, Prothromb Time International Ratio 1.0, Activated Partial Thromboplast Time 29, Sodium Level 144, Potassium Level 4.8, Chloride Level 100, Carbon Dioxide Level 33H, Anion Gap 11, Blood Urea Nitrogen 41H, Creatinine 14.0H, Estimat Glomerular Filtration Rate , Glucose Level 127H, Calcium Level 9.3, Phosphorus Level 5.1H Height (Feet): 5 Height (Inches): 5.00 Weight (Pounds): 134 Objective Slender. NAD AVSS CV RR Lungs CTA Abd SNT. BS + E No CCE Richmond David MD Oct 03, 2018 11:20
[2018-10-03] MEDS ORDERED: SENNA-GEN8.6 M1 ORAL (11:25)
[2018-10-03] MEDS ORDERED: NORMODYNE200 MG ORAL (11:25)
[2018-10-03] MEDS ORDERED: MOM30 ML ORAL (11:25)
--- NOTE | 2018-10-03 11:47 | GI Progress Note ---
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 Gregg Assessment/Plan OB stool negative Abdominal pain unknown etiology EGD canceled, patient ate breakfast this morning despite being n.p.o. cocktail as needed for his dyspepsia. Continue Senokot twice daily as ordered Monitor for normal bowel movements monitor H&H, prn transfusions bowel regime ppi fu labs The patient was seen and examined at bedside and all new and available data was reviewed in the patients chart. I agree with the above findings, impression and plan. (Patient seen earlier today. Signature stamp does not reflect patient encounter time.). - Rohan Gregg MD Subjective Subjective Patient still complains of abdominal pain, but comes and goes. Patient ate breakfast this morning Objective Last 24 Hour Vital Signs Date Time Temp Pulse Resp B/P (MAP) Pulse Ox O2 Delivery O2 Flow Rate FiO2 10/03/18 09:00 Room Air 10/03/18 08:50 67 136/69 10/03/18 08:00 97.2 67 20 136/69 (91) 97 10/03/18 04:00 69 10/03/18 04:00 97.5 89 19 150/79 (102) 98 10/03/18 00:00 61 10/03/18 00:00 97.5 61 19 129/88 (102) 97 10/02/18 21:39 68 147/81 10/02/18 21:00 Room Air 10/02/18 20:00 97.7 60 18 155/85 (108) 97 10/02/18 20:00 60 10/02/18 16:00 98.1 66 20 144/74 (97) 97 10/02/18 16:00 67 10/02/18 12:00 72 10/02/18 12:00 98.1 66 20 135/78 (97) 100 Intake and Output 10/02/18 10/03/18 19:00 07:00 Output Total 800 ml Balance -800 ml Output Urine Total 800 ml # Voids 1 # Bowel Movements 1 Laboratory Tests Test 10/03/18 06:30 White Blood Count 7.2 K/UL (4.8-10.8) Red Blood Count 4.27 M/UL (4.70-6.10) L Hemoglobin 12.5 G/DL (14.2-18.0) L Hematocrit 38.5 % (42.0-52.0) L Mean Corpuscular Volume 90 FL (80-99) Mean Corpuscular Hemoglobin 29.4 PG (27.0-31.0) Mean Corpuscular Hemoglobin Concent 32.6 G/DL (32.0-36.0) Red Cell Distribution Width 15.1 % (11.6-14.8) H Platelet Count 212 K/UL (150-450) Mean Platelet Volume 7.6 FL (6.5-10.1) Neutrophils (%) (Auto) 76.4 % (45.0-75.0) H Lymphocytes (%) (Auto) 11.6 % (20.0-45.0) L Monocytes (%) (Auto) 10.1 % (1.0-10.0) H Eosinophils (%) (Auto) 1.0 % (0.0-3.0) Basophils (%) (Auto) 0.9 % (0.0-2.0) Prothrombin Time 10.4 SEC (9.30-11.50) Prothromb Time International Ratio 1.0 (0.9-1.1) Activated Partial Thromboplast Time 29 SEC (23-33) Sodium Level 144 MMOL/L (136-145) Potassium Level 4.8 MMOL/L (3.5-5.1) Chloride Level 100 MMOL/L (98-107) Carbon Dioxide Level 33 MMOL/L (21-32) H Anion Gap 11 mmol/L (5-15) Blood Urea Nitrogen 41 mg/dL (7-18) H Creatinine 14.0 MG/DL (0.55-1.30) H Estimat Glomerular Filtration Rate mL/min (>60) Glucose Level 127 MG/DL (74-106) H Calcium Level 9.3 MG/DL (8.5-10.1) Phosphorus Level 5.1 MG/DL (2.5-4.9) H Height (Feet): 5 Height (Inches): 5.00 Weight (Pounds): 134 General Appearance: WD/WN, no apparent distress, alert Cardiovascular: normal rate Respiratory/Chest: normal breath sounds, no respiratory distress Abdominal Exam: normal bowel sounds, non tender, soft Extremities: normal range of motion, non-tender Raul Owens NP Oct 03, 2018 11:47
[2018-10-03 12:00] VITALS: BP 142/75
[2018-10-03 16:00] VITALS: BP 113/59
--- NOTE | 2018-10-03 18:05 | NUR ---
NURSE NOTES: Discharge instruction given and patient verbalized understanding. Inventory check done. 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 No acute distress/SOB noted. Awaiting for sister to pick-up.
--- NOTE | 2018-10-03 19:30 | NUR ---
NURSE NOTES: Received report from ESA Ingram. Pt is awake and resting in bed. In no acute distress. Bed in lowest position, call light within reach. Pt will be discharged home per MD order. Awaiting for pt's sister for transportation.
[2018-10-03 20:00] VITALS: BP 124/64
--- NOTE | 2018-10-03 20:05 | NUR ---
NURSE NOTES: Discharged pt to home. Left hospital via car accompanied by sister. Pt was in stable condition at the time of transfer.
--- NOTE | 2018-10-04 15:47 | Discharge Summary ---
Discharge Summary Discharge Summary _ DATE OF ADMISSION: 09/30/2018 DATE OF DISCHARGE: 10/03/2018 DISCHARGED BY: Dr. Richmond David CONSULTANTS: Dr. Delmy Gregg [facility] HOSPITAL COURSE: Patient is an 78-year-old male, who is on dialysis every Sunday, Sunday and Sunday. The patient complained of intolerable upper abdominal pain with chest pressure related to inability to defecate and constipation. He presented to the emergency department. On evaluation at the ED, blood pressure was elevated 220/100, pulse rate of 100. Blood work did not show any leukocytosis, were stable. Troponin was elevated to 0.204. EKG showed sinus tachycardia with no acute ischemic changes. Chest x-ray showed no acute process. CT of the brain was unremarkable. He was initially given hydralazine and labetalol blood pressure and heart rate improved. There were no ischemic changes seen on EKG. Troponin elevation possibly troponin leak. Patient was then admitted for evaluation of obstipation, end-stage renal failure, and hypertensive cardiovascular disease. GI was consulted. Abdominal ultrasound was negative for gallstones or dilated ducts. He was given GI cocktail for dyspepsia. He was given Senokot twice daily. He was given bowel regimen. He was placed on Protonix. He was given milk of magnesia. He was eventually able to move his bowels. He was given labetalol for blood pressure control. He was placed on heparin for DVT prophylaxis. He continued to complain of abdominal pain. Stool OB was negative x1. He was scheduled to have EGD. However, procedure was canceled because patient ate. He was eventually discharged home after hemodialysis. FINAL DIAGNOSES: Abdominal pain from obstipation/constipation End-stage renal disease on hemodialysis Hypertensive cardiovascular disease Anemia chronic kidney disease GERD DISPOSITION: Patient was discharged home. DISCHARGE MEDICATIONS: Refer to Discharge Medication List. DISCHARGE INSTRUCTIONS: Follow-up in a week. I have been assigned to complete a discharge summary on this account, I was not involved with the patient's management. Jie Vasquez NP Oct 04, 2018 15:47
== END 2018-10-03 20:00 | disposition home or self-care (01) | DRG 391 ==
LOC: EDBD 16:34 → EMR 17:41 → 2E 18:25 → EDBEDREQ 18:47
DX: K59.00 Constipation, unspecified (principal); N18.6 End stage renal disease; I12.0 Hypertensive chronic kidney disease with stage 5 chronic kidney disease or end stage renal disease; R10.9 Unspecified abdominal pain; Z99.2 Dependence on renal dialysis; D63.1 Anemia in chronic kidney disease; K21.9 Gastro-esophageal reflux disease without esophagitis; D50.0 Iron deficiency anemia secondary to blood loss (chronic)
CPT/HCPCS: 36415; 70450; 71045; 76700; 80048; 80053; 82270; 82378; 82550; 82553; 82607; 82728; 82746; 82962; 83540; 83550; 83735; 83880; 84100; 84439; 84443; 84484; 85025; 85044; 85610; 85730; 87081; 93005; 96374; 99285; J2405

== ENCOUNTER 2018-11-18 15:18 | Inpatient (IN) | payer MEDICARE, OTHER ==
[~2018-11-18] VITALS: Ht 177.8 cm; Wt 61.2 kg
[2018-11-18] VITALS (7 sets, daily range): BP systolic 139–216; BP diastolic 87–98
[~2018-11-18 15:18] MED LIST changes: +MOM30 ML ORAL; +NORMODYNE200 MG ORAL; +SENNA-GEN8.6 M1 ORAL
--- NOTE | 2018-11-18 15:30 | NUR ---
ED Nurse Note: patient was brought by RA from home, complaining of SOB and chest pain 8/. per patient he feels discomphort in his chest about 2 hours. AAO x4, patient's BP ia high 200/105. patient connected to the monitor, will continue to monitor.
[2018-11-18] MEDS ORDERED: Nitroglycerin 2% oint pkt TOPIC ONE (15:45)
[2018-11-18 16:38] LABS: ANION GAP 14 mmol/L (5-15); BLOOD UREA NITROGEN 30 mg/dL (7-18); CALCIUM 9.7 MG/DL (8.5-10.1); CARBON DIOXIDE 26 MMOL/L (21-32); CHLORIDE 104 MMOL/L (98-107); CREATININE 13.1 MG/DL (0.55-1.30); POTASSIUM 3.5 MMOL/L (3.5-5.1); SODIUM 144 MMOL/L (136-145)
[2018-11-18 16:42] LABS: BASOPHILS % (AUTO) 1.8 % (0.0-2.0); EOSINOPHILS % (AUTO) 1.4 % (0.0-3.0); HEMATOCRIT 35.9 % (42.0-52.0); HEMOGLOBIN 11.7 G/DL (14.2-18.0); LYMPHOCYTES % (AUTO) 8.1 % (20.0-45.0); MEAN CORPUSCULAR VOLUME 90 FL (80-99); MONOCYTES % (AUTO) 9.1 % (1.0-10.0); NEUTROPHILS % (AUTO) 79.5 % (45.0-75.0); PLATELET COUNT 211 K/UL (150-450); RED CELL DISTRIBUTION WIDTH 19.1 % (11.6-14.8)
[2018-11-18 16:53] LABS: ALANINE AMINOTRANSFERASE 16 U/L (12-78); ALBUMIN 3.7 G/DL (3.4-5.0); ALKALINE PHOSPHATASE 44 U/L (46-116); ASPARTATE AMINO TRANSFERASE 18 U/L (15-37); BILIRUBIN,TOTAL 0.4 MG/DL (0.2-1.0); CKMB 2.9 NG/ML (0.0-3.6); CREATINE KINASE 222 U/L (26-308)
--- NOTE | 2018-11-18 16:54 | Diagnostic Imaging Report ---
Indication: Chest pain Technique: One view of the chest Comparison: 09/22/2017 Findings: Heart is enlarged. The lungs and pleural spaces are clear. Pulmonary vascular areas normal. There are left axillary surgical clips again demonstrated Impression: Cardiomegaly. No acute process
--- NOTE | 2018-11-18 17:00 | NUR ---
ED Nurse Note: patient is in the bed, BP still high 195/98.
[2018-11-18] MEDS ORDERED: cloNIDine 0.2mg Tab ORAL ONE (18:30)
--- NOTE | 2018-11-18 18:43 | NUR ---
ED Nurse Note: tried to give report to RN in [facility], per ESA Sanchez they can not accept pt. with BP 203/98.
--- NOTE | 2018-11-18 19:05 | NUR ---
ED Nurse Note: tried to give report second time, per charge nurse they can not take report, since RNs changing their shift.
--- NOTE | 2018-11-18 19:19 | NUR ---
HAND-OFF: Report given to ESA Hackett.
[2018-11-18] MEDS ORDERED: Labetalol 200mg tab ORAL ONE (19:45)
--- NOTE | 2018-11-18 19:50 | NUR ---
ED Nurse Note: Report given to ESA Nicole. VSS aside from elevated SBP of 184. Pt A/Ox4, showing no signs of acute distress. Pt accompanied to floor by automobile glass technician and RN. Pt connected to monitor for continuous monitoring.
--- NOTE | 2018-11-18 20:00 | NUR ---
NURSE NOTES: RECEIVED THE PATIENT FROM ER VIA [facility]. ENDORSED FROM PAUL/ESA. PATIENT ALERT, ORIENTED X4 AT THIS TIME, DENIED CHEST PAIN OR SOB, NO N/V NOTED, RESPIRATION REGULAR ON ROOM AIR, O2 SATURATION 100% NOTED, ABDOMEN SOFT, HYPOACTIVE BOWEL SOUND X4 QUADRANTS, LAST BOWEL MOVEMENT 2 DAYS AGO, NO DIARRHEA REPORTED, AV SHUNT TO LEFT UPPER ARM, PALPABLE THRILL AND BRUITS, KEPT LEFT ARM PRECAUTION, HEPLOCK TO RIGHT FORE ARM 18G, INTACT AND PATENT, PROVIDED CALL LIGHT WITHIN REACH, MADE LOWER BED POSITION, WILL CONTINUE TO MONITOR.
--- NOTE | 2018-11-18 21:10 | NUR ---
NURSE NOTES: CALLED DR. STILL REGARDING ADMISSION ORDER THAT LEFT MESSAGE TO AWAITING CALL AND PAGED.
--- NOTE | 2018-11-18 21:33 | NUR ---
NURSE NOTES: CALLED BACK FROM DR. STILL THAT MD WAS AWARE, RECEIVED ADMISSION ORDER AND WILL CARRY OUT.
[2018-11-18] MEDS ORDERED: Milk of Magnesia 30ml Ud ORAL PRN (21:45)
[2018-11-18] MEDS ORDERED: HYDROcodone/Acetamin 5/325 tab ORAL PRN (21:45)
--- NOTE | 2018-11-18 21:48 | NUR ---
NURSE NOTES: CALLED [facility] REGARDING DIALYSIS IN AM THAT EXCHANGER WAS AWARE.
--- NOTE | 2018-11-18 22:02 | Emergency Room Report ---
History of Present Illness General Chief Complaint: Chest Pain Source: Patient, EMS Present Illness HPI This patient complains of chest pain since 10 AM this morning. He states that the pain is constant but is improved now. He was brought in by EMS and given nitroglycerin spray and aspirin en route. He states that he also notes that his blood pressure was elevated. He does take his regular blood pressure medications. He denies recent illness. He denies cough or congestion. He denies fever or chills. He denies nausea or vomiting. He denies headache. He denies abdominal pain. He has no other complaints. Allergies: Coded Allergies: No Known Allergies (Unverified , 06/16/14) Patient History Past Medical History: see triage record, DM, HTN, renal disease, dialysis Social History: Denies: smoking, alcohol use, drug use Reviewed Nursing Documentation: PMH: Agreed; PSxH: Agreed Nursing Documentation-PMH Hx Cardiac Problems: Yes Hx Hypertension: Yes Hx Diabetes: Yes Hx Cancer: No Hx Gastrointestinal Problems: No Hx Neurological Problems: No Review of Systems All Other Systems: negative except mentioned in HPI Physical Exam Vital Signs Date Time Temp Pulse Resp B/P (MAP) Pulse Ox O2 Delivery O2 Flow Rate FiO2 11/18/18 15:12 97.9 109 18 199/100 90 Room Air Sp02 EP Interpretation: reviewed, normal General Appearance: no apparent distress, alert, GCS 15, non-toxic Head: normocephalic, atraumatic Eyes: bilateral eye normal inspection, bilateral eye PERRL ENT: hearing grossly normal, normal pharynx, no angioedema, normal voice Neck: full range of motion, supple/symm/no masses Respiratory: chest non-tender, lungs clear, normal breath sounds, no respiratory distress, no retraction, no accessory muscle use, speaking full sentences Cardiovascular #1: regular rate, rhythm, no edema, diastolic murmur, systolic murmur Gastrointestinal: normal bowel sounds, non tender, soft, non-distended, no guarding, no rebound Rectal: deferred Musculoskeletal: back normal, gait/station normal, normal range of motion, non- tender Neurologic: alert, oriented x3, responsive, motor strength/tone normal, sensory intact, speech normal Psychiatric: judgement/insight normal, memory normal, mood/affect normal, no suicidal/homicidal ideation Skin: normal color, no rash, warm/dry, well hydrated Medical Decision Making Diagnostic Impression: Primary Impression: Malignant hypertension Additional Impressions: NSTEMI (non-ST elevated myocardial infarction) Heart murmur ER Course This patient presents with malignant hypertension. He also has an elevated troponin. The patient's hypertension was very difficult to control. He was given 20 mg of hydralazine IV without significant decrease in his hypertension. He was then given clonidine 0.2 mg orally. He had some improvement in his blood pressure but it was still elevated. I had ordered a 300 mg labetalol but the patient was transferred to the ICU step down unit before this was given in the emergency department. This patient is critically ill. This patient required complex medical decision- making, aggressive intervention, extensive laboratory workup and monitoring. Critical care time: 40 minutes. Laboratory Tests Test 11/18/18 15:45 White Blood Count 10.0 K/UL (4.8-10.8) Red Blood Count 4.00 M/UL (4.70-6.10) L Hemoglobin 11.7 G/DL (14.2-18.0) L Hematocrit 35.9 % (42.0-52.0) L Mean Corpuscular Volume 90 FL (80-99) Mean Corpuscular Hemoglobin 29.3 PG (27.0-31.0) Mean Corpuscular Hemoglobin Concent 32.6 G/DL (32.0-36.0) Red Cell Distribution Width 19.1 % (11.6-14.8) H Platelet Count 211 K/UL (150-450) Mean Platelet Volume 5.6 FL (6.5-10.1) L Neutrophils (%) (Auto) 79.5 % (45.0-75.0) H Lymphocytes (%) (Auto) 8.1 % (20.0-45.0) L Monocytes (%) (Auto) 9.1 % (1.0-10.0) Eosinophils (%) (Auto) 1.4 % (0.0-3.0) Basophils (%) (Auto) 1.8 % (0.0-2.0) Prothrombin Time 11.0 SEC (9.30-11.50) Prothrombin Time INR 1.0 (0.9-1.1) PTT 30 SEC (23-33) Sodium Level 144 MMOL/L (136-145) Potassium Level 3.5 MMOL/L (3.5-5.1) Chloride Level 104 MMOL/L (98-107) Carbon Dioxide Level 26 MMOL/L (21-32) Anion Gap 14 mmol/L (5-15) Blood Urea Nitrogen 30 mg/dL (7-18) H Creatinine 13.1 MG/DL (0.55-1.30) H Estimate Glomerular Filtration Rate mL/min (>60) Glucose Level 117 MG/DL (74-106) H Calcium Level 9.7 MG/DL (8.5-10.1) Total Bilirubin 0.4 MG/DL (0.2-1.0) Aspartate Amino Transferase (AST) 18 U/L (15-37) Alanine Aminotransferase (ALT) 16 U/L (12-78) Alkaline Phosphatase 44 U/L (46-116) L Total Creatine Kinase 222 U/L (26-308) Creatine Kinase MB 2.9 NG/ML (0.0-3.6) Creatine Kinase MB Relative Index 1.3 Troponin I 0.231 ng/mL (0.000-0.056) Pro-B-Type Natriuretic Peptide > 19345 pg/mL (0-125) H Total Protein 7.3 G/DL (6.4-8.2) Albumin 3.7 G/DL (3.4-5.0) Globulin 3.6 g/dL Albumin/Globulin Ratio 1.0 (1.0-2.7) EKG Diagnostic Results Rate: normal Rhythm: NSR ST Segments: no acute changes Other Impression RBBB Rhythm Strip Diag. Results EP Interpretation: yes Rate: 90's Rhythm: NSR, no PVC's, no ectopy Chest X-Ray Diagnostic Results Chest X-Ray Diagnostic Results : Chest X-Ray Ordered: Yes # of Views/Limited/Complete: 1 View Indication: Chest Pain EP Interpretation: Yes Interpretation: no consolidation, no effusion, no pneumothorax, other - cardiomegaly Impression: No acute disease Electronically Signed by: Bibiana Singh DO Last Vital Signs Date Time Temp Pulse Resp B/P (MAP) Pulse Ox O2 Delivery O2 Flow Rate FiO2 11/18/18 19:59 98 185/98 11/18/18 19:04 98.0 18 98 Room Air Disposition: ADMITTED INPATIENT Condition: Critical Referrals: NON PHYSICIAN (PCP) Bibiana Singh DO Nov 18, 2018 22:02
[2018-11-18] MEDS: Tamsulosin 0.4mg cap ORAL SCH (22:06)
--- NOTE | 2018-11-18 23:30 | NUR ---
NURSE NOTES: PATIENT DENIED CHEST PAIN OR DISTRESS AT THIS TIME, WILL CONTINUE TO MONITOR.
[2018-11-19] VITALS: BP 151/89
--- NOTE | 2018-11-19 02:30 | NUR ---
NURSE NOTES: NO PAIN OR DISTRESS NOTED AT THIS TIME.
[2018-11-19 04:00] VITALS: BP 166/88
--- NOTE | 2018-11-19 04:15 | Consultation ---
DATE OF CONSULTATION: 11/18/2018 CARDIOLOGY CONSULTATION CONSULTING PHYSICIAN: Jesu Fitzgerald M.D. REQUESTING PHYSICIAN: Richmond David M.D. REASON FOR CONSULTATION: Chest pain and malignant hypertension. HISTORY OF PRESENT ILLNESS: This 78-year-old male presented to the emergency room with complaints of chest pain since early this morning. The pain has been constant although improved upon arrival to the emergency room. He states he was given nitroglycerin and aspirin en route by paramedics and that helped him feel better. The patient also had elevated blood pressure readings despite taking his medications as regularly prescribed. He has not had any new changes in his diet or medication regimen and has not had any recent illness such as upper respiratory or abdominal infection. In the emergency room, his blood pressure was almost 200/100 systolic with a heart rate 109 and respiratory rate of 18 on presentation. Oxygen saturation on room air was 90%. The patient was started on antihypertensives and improved. PAST MEDICAL HISTORY: 1. Hypertension. 2. Type 2 diabetes mellitus. 3. End-stage renal disease, on hemodialysis. 4. Prostatic hypertrophy. MEDICATIONS: Reviewed and reconciled. ALLERGIES: None known. FAMILY HISTORY: Noncontributory. SOCIAL HISTORY: Negative for smoking, alcohol, or substance abuse. REVIEW OF SYSTEMS: No fevers. No chills. No loss of vision or hearing. No focal weakness. No change in bowel habits. He is on dialysis three times a week. He has had a heart attack in the past. He has had high blood pressure for many years. He notes episodes of constipation. PHYSICAL EXAMINATION: VITAL SIGNS: Blood pressure 148/94, pulse 74, respiratory rate 18, and afebrile. HEENT: Normocephalic and atraumatic. Conjunctivae pink. Sclerae are anicteric. Oropharynx clear. Mucous membranes moist. NECK: Supple. Jugular venous pressure elevated. LUNGS: Diminished breath sounds. No wheezing. CARDIAC: Regular rhythm and rate. Normal S1, S2 with a fourth heart sound. Point of maximum impulse sustained laterally displaced. ABDOMEN: Soft and nontender. No guarding, rebound, or bruits. EXTREMITIES: Without edema. There is an AV fistula that is tortuous in the left upper extremity with a palpable bruit. DIAGNOSTIC DATA: EKG reveals sinus rhythm, right bundle-branch block, nonspecific ST change. Chest x-ray, no acute process. CK 222 with normal CK-MB and MB index. Troponin 0.231. Pro-natriuretic peptide over 35,000. Sodium 144, potassium 3.5, bicarbonate 26, BUN 30, and creatinine 13. Glucose 117. Albumin 3.7. IMPRESSION: 1. Acute coronary syndrome. 2. Hypertensive urgency. 3. End-stage renal disease. 4. Possible non-ST elevation myocardial infarction. PLAN: 1. Cardiac monitoring. 2. Serial troponins. 3. Titration of antihypertensives for optimization of blood pressure control. 4. Hemodialysis with ultrafiltration for volume management. 5. Cardiac echo. 6. DVT prophylaxis with subcutaneous heparin to be deferred until blood pressure control has been achieved. Jesu Fitzgerald M.D. DR: NGOZI JOB#: [id number] CC:
--- NOTE | 2018-11-19 04:20 | NUR ---
NURSE NOTES: MORNING CARE WAS DONE, ANURIC STATUS.
--- NOTE | 2018-11-19 06:50 | NUR ---
NURSE NOTES: PATIENT ASLEEP, NO CHEST PAIN NOTED AT THIS SHIFT.
--- NOTE | 2018-11-19 07:16 | NUR ---
HAND-OFF: Report given to ESA BROWN.
--- NOTE | 2018-11-19 07:44 | NUR ---
NURSE NOTES: Received patient Gómez Torres RN. Patient is awake, oriented x4, and eating breakfast. Reminded patient of fluid restriction of 1L. IV site is Right forearm 18 gauge is patent and intact. Bed is locked, placed in lowest position, side rails x3, call light within reach. Will continue to monitor. Addendum: 11/19/18 at 0749 by Jane Hdz RN Patient denies any chest pain or any discomfort.
[2018-11-19 08:00] VITALS: BP 173/98
[2018-11-19] MEDS ORDERED: Minoxidil 2.5mg tab ORAL SCH (09:00)
[2018-11-19] MEDS: Sennosides 8.6mg tab ORAL SCH ×2 (09:23→17:38)
[2018-11-19] MEDS: Nephrovite tab (Rena-Vite) ORAL SCH (09:23)
[2018-11-19] MEDS: Aspirin EC 81mg tab ORAL SCH (09:24)
[2018-11-19] MEDS: Labetalol 200mg tab ORAL SCH ×2 (10:19→18:00)
[2018-11-19 12:00] VITALS: BP 150/85
--- NOTE | 2018-11-19 13:08 | NUR ---
INVESTMENT ADVISORTOUR GUIDE 78 Y/O MALE BIBA FROM HOME TO [facility] [place] ER CC:CHEST PAIN SI:MALIGNANT HYPERTENSION/ NSTEMI VS: BP 200/98, P 111, T 98.0, RR 19, SPO2 90 on Room Air RBC 4.00 Hgb 11.7, Hct 35.9, BUN 30, CR 13.1 CXR Impression: Cardiomegaly. No acute process IS:NS 500ml IV APRESOLINE 10mg IV NITROGLYCERIN 1inch TOPICAL CLONIDINE 0.2mg LABETALOL 300mg ADMITTED TO [facility] DC PLAN: RETURN HOME
--- NOTE | 2018-11-19 13:12 | Cardiology Report ---
APPROVED REPORT EXAM: Two-dimensional and M-mode echocardiogram with Doppler and color Doppler. INDICATION Chest Pain M-Mode DIMENSIONS IVSd1.3 (0.7-1.1cm)Left Atrium (MM)3.1 (1.6-4.0cm) LVDd5.2 (3.5-5.6cm)Aortic Root3.5 (2.0-3.7cm) PWd1.0 (0.7-1.1cm)Aortic Cusp Exc.2.0 (1.5-2.0cm) IVSs1.4 cm LVDs3.2 (2.5-4.0cm) PWs0.9 cm Normal left ventricular chamber size, systolic function and wall motion. Left ventricular ejection fraction estimated to be 65-70%. Mild left ventricular hypertrophy by 2-D. No evidence of pericardial effusion. All other cardiac chamber sizes are within normal limits. Mild aortic valve sclerosis with adequate cusp excursion. Mildly thickened mitral valve leaflets with normal excursion. Mild mitral annulus and aortic root calcification. Pulmonic valve not well visualized. IVC at smalll size with physiologic collapse suggest RA presuer 0-3. A color flow and spectral Doppler study was performed and revealed: Trace aortic insufficiency . Mitral diastolic velocities suggest reduced left ventricular relaxation c/w mild LV diastolic dysfunction (Grade I ) Mild mitral regurgitation. Mild tricuspid regurgitation. Tricuspid systolic velocities suggests peak right ventricular systolic pressure of 44 mmHg,consistent with mild pulmonary hypertension .
--- NOTE | 2018-11-19 15:35 | Cardiology Report ---
APPROVED REPORT EKG Measurement Heart [id number] OR 152P [id number] Normal sinus rhythm Right bundle branch block Inferior infarct, age undetermined Abnormal ECG
--- NOTE | 2018-11-19 15:37 | Cardiology Report ---
APPROVED REPORT EKG Measurement Heart [id number] [place] 150P [id number] Sinus rhythm with premature atrial complexes Right bundle branch block Abnormal ECG
[2018-11-19 16:00] VITALS: BP 175/65
--- NOTE | 2018-11-19 19:13 | NUR ---
HAND-OFF: Report given to Gómez Torres RN.
--- NOTE | 2018-11-19 19:40 | NUR ---
NURSE NOTES: PATIENT ALERT, ORIENTED, DENIED CHEST PAIN, RESPIRATION REGULAR ON ROOM AIR, O2 SATURATION 100% NOTED, ABDOMEN SOFT, HYPOACTIVE BOWEL SOUND X4 QUADRANTS, NO BOWEL MOVEMENT TODAY, AV SHUNT TO LEFT UPPER ARM, PALPABLE THRILL AND BRUITS, KEPT LEFT ARM PRECAUTION, HEPLOCK TO RIGHT FORE ARM 18G, INTACT AND PATENT, PROVIDED CALL LIGHT WITHIN REACH, MADE LOWER BED POSITION, WILL CONTINUE TO MONITOR.
[2018-11-19 20:00] VITALS: BP 157/86
--- NOTE | 2018-11-19 20:00 | NUR ---
NURSE NOTES: DIALYSIS NURSE CAME AT THIS TIME.
[2018-11-19] MEDS ORDERED: Heparin Sod 1000 units/ml 10ml IV SCH (21:30)
--- NOTE | 2018-11-19 21:30 | History and Physical Report ---
DATE OF ADMISSION: 11/18/2018 CHIEF COMPLAINT: Chest pain. HISTORY OF PRESENT ILLNESS: This is an 78-year-old male, who is on dialysis. The patient has history of noncompliance with medications. The patient has advanced dementia. He keeps forgetting to take his blood pressure medications. He has very poor social support. 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 The patient keep switching his medications and his blood pressure is always extremely high, a systolic more than 200 and diastolic more than 120. The patient presented to the emergency department with the chest pain. PAST MEDICAL HISTORY: 1. End-stage renal failure. 2. Malignant hypertension. 3. Noncompliance with medications. 4. Benign prostatic hypertrophy. HOME MEDICATIONS: Multiple blood pressure medications, keep changing quickly. Amlodipine, baby aspirin, [place], clonidine p.r.n., senna, tamsulosin, and labetalol. ALLERGIES: No known drug allergies. FAMILY HISTORY: Unremarkable. SOCIAL HISTORY: He lives at home. HABITS: He is nonsmoker and nondrinker. There is no history of illicit drug abuse. REVIEW OF SYSTEMS: HEENT: Hearing and eyesight are normal. ENDOCRINE: No history of diabetes, thyroid, or adrenal problems. RESPIRATORY: He denies shortness of breath, cough, or hemoptysis. CARDIAC: Per the history of present illness. NEUROLOGIC: The patient has dementia. GENITOURINARY: He has history of benign prostatic hypertrophy and nocturia x2 to 3. PHYSICAL EXAMINATION: GENERAL: This is an elderly male, who is in no acute distress. VITAL SIGNS: Notable for a very high blood pressure that is decreasing gradually with escalating doses of antihypertensive medications. Currently 150/85 with pulse of 71, respirations 18, and temperature 97.7. HEENT: The head is normocephalic and atraumatic. Pupils are equal, round, and reactive to light and accommodation consensually. NECK: Supple. Trachea midline. There was no lymphadenopathy or thyromegaly. LUNGS: Clear to auscultation and percussion. HEART: Regular rate and rhythm without rubs, murmurs, or gallops. ABDOMEN: Soft and nontender. Bowel sounds were active. EXTREMITIES: No clubbing, cyanosis, or edema. He has a left upper arm AV fistula. NEUROLOGIC: He is alert, but confused. There were no gross focal findings. LABORATORY AND ANCILLARY DATA: Hemoglobin 11.7. BUN 30 and creatinine 13.1. Troponin levels in the range of 0.23. EKGs, normal sinus rhythm, left ventricular hypertrophy, and an evidence of inferior infarct. ASSESSMENT: 1. Accelerated hypertension. 2. Mildly elevated troponin levels. 3. End-stage renal failure. 4. Malignant hypertension. 5. Noncompliance with medications. 6. Benign prostatic hypertrophy. PLAN: 1. Hemodialysis today. 2. Try to organize the patient's blood pressure therapy. Richmond David M.D. DR: MIGUEL JOB#: [id number] CC:
--- NOTE | 2018-11-19 22:15 | NUR ---
NURSE NOTES: FINISHED DIALYSIS, REMOVED 3000ML AT THIS TIME, SECURED AV SHUNT AND NO BLEEDING NOTED, WILL CONTINUE TO MONITOR.
[2018-11-19] MEDS: Tamsulosin 0.4mg cap ORAL SCH (22:38)
[2018-11-19] MEDS: Minoxidil 2.5mg tab ORAL SCH (22:39)
[2018-11-19] MEDS: Heparin 5000 units/ml inj SUBQ SCH (22:39)
[2018-11-20] VITALS: BP 155/89
[2018-11-20 00:15] LABS: CHOLESTEROL 141 MG/DL (< 200); HDL CHOLESTEROL 54 MG/DL (40-60); TRIGLYCERIDES 58 MG/DL (30-150)
--- NOTE | 2018-11-20 00:50 | NUR ---
NURSE NOTES: PATIENT TRIED TO REMOVE LOOM FIXER HELPER LINE AND OUT OF BED THAT INFORMED PATIENT REGARDING HIS SITUATION , FOLLOWED COMMANDS AT THIS TIME, WILL CONTINUE TO MONITOR.
--- NOTE | 2018-11-20 01:00 | Progress Note ---
DATE: 11/19/2018 CARDIOLOGY PROGRESS NOTE SUBJECTIVE: The patient has no distress, but has advanced dementia and is unable to give any historical data to determine whether he has a chest pain or perceived shortness of breath. He is scheduled for hemodialysis with ultrafiltration. OBJECTIVE: VITAL SIGNS: Blood pressure 175/65 earlier, now 157/86, heart rate 75, and respiratory rate 16. He is afebrile. LUNGS: Clear. CARDIAC: Regular. Normal S1, S2 with a fourth heart sound. ABDOMEN: Soft. EXTREMITIES: No edema. LABORATORY DATA: Troponin remains in the range of 0.227. IMPRESSION: 1. Hypertensive urgency. 2. End-stage renal disease. 3. Acute myocardial ischemia. 4. Acute on chronic diastolic congestive heart failure. PLAN: 1. Hemodialysis with ultrafiltration. 2. Titrate antihypertensive and antianginal regimen. 3. Medical management to include anti-platelet drugs and nitrates. Jesu Fitzgerald M.D. DR: NGOZI JOB#: [id number] CC:
--- NOTE | 2018-11-20 03:30 | NUR ---
NURSE NOTES: PATIENT ASLEEP STATUS, NO PAIN OR DISTRESS NOTED AT THIS TIME.
[2018-11-20 04:00] VITALS: BP 136/81
[2018-11-20 05:22] LABS: ALANINE AMINOTRANSFERASE 12 U/L (12-78); ALBUMIN 3.5 G/DL (3.4-5.0); ALKALINE PHOSPHATASE 47 U/L (46-116); ANION GAP 13 mmol/L (5-15); ASPARTATE AMINO TRANSFERASE 21 U/L (15-37); BILIRUBIN,TOTAL 0.6 MG/DL (0.2-1.0); BLOOD UREA NITROGEN 23 mg/dL (7-18); CALCIUM 9.3 MG/DL (8.5-10.1); CARBON DIOXIDE 26 MMOL/L (21-32); CHLORIDE 100 MMOL/L (98-107); CREATININE 11.4 MG/DL (0.55-1.30); POTASSIUM 3.6 MMOL/L (3.5-5.1); SODIUM 139 MMOL/L (136-145)
--- NOTE | 2018-11-20 06:50 | NUR ---
NURSE NOTES: MORNING CARE WAS DONE, NO BOWEL MOVEMENT.
--- NOTE | 2018-11-20 07:05 | NUR ---
HAND-OFF: Report given to ESA BROWN.
--- NOTE | 2018-11-20 07:17 | NUR ---
NURSE NOTES: Received patient from Gómez Torres RN. Patient is asleep and opens eyes spontaneously. IV site is Right forearm 18g and is asymptomatic. Left upper arm fistula noted with bruit and thrill, no bleeding noted. Bed is locked, placed in lowest position, side rails up x3, call light within reach. Will continue to monitor.
[2018-11-20 08:00] VITALS: BP 152/92
[2018-11-20] MEDS: Labetalol 200mg tab ORAL SCH ×2 (08:46→18:00)
[2018-11-20] MEDS: Nephrovite tab (Rena-Vite) ORAL SCH (08:47)
[2018-11-20] MEDS: Aspirin EC 81mg tab ORAL SCH (08:47)
[2018-11-20] MEDS: Minoxidil 2.5mg tab ORAL SCH ×2 (08:48→21:00)
[2018-11-20] MEDS: Sennosides 8.6mg tab ORAL SCH ×2 (08:48→18:00)
[2018-11-20] MEDS: Heparin 5000 units/ml inj SUBQ SCH ×2 (08:58→21:00)
[2018-11-20 12:00] VITALS: BP 120/68
--- NOTE | 2018-11-20 13:18 | Nephrology Progress Note ---
Assessment/Plan Plan Vomiting - GI to advise. CP - Cardiac W/U ESRD - HD TTS Subjective Subjective Vomiting Objective Objective Last 24 Hour Vital Signs Date Time Temp Pulse Resp B/P (MAP) Pulse Ox O2 Delivery O2 Flow Rate FiO2 11/20/18 13:00 120/68 11/20/18 12:00 97.9 79 20 120/68 (85) 98 11/20/18 12:00 Room Air 11/20/18 11:41 85 11/20/18 08:48 152/92 11/20/18 08:48 72 152/92 11/20/18 08:47 152/92 11/20/18 08:46 72 152/92 11/20/18 08:20 88 11/20/18 08:00 Room Air 11/20/18 08:00 96.6 72 20 152/92 (112) 100 11/20/18 04:00 Room Air 11/20/18 04:00 97.9 76 20 136/81 (99) 99 11/20/18 03:33 82 11/20/18 00:00 98.8 75 20 155/89 (111) 98 11/20/18 00:00 Room Air 11/19/18 23:24 80 11/19/18 22:39 160/80 11/19/18 20:00 98.2 75 16 157/86 (109) 98 11/19/18 20:00 Room Air 11/19/18 19:03 70 11/19/18 18:00 70 153/84 11/19/18 16:00 98.1 71 20 175/65 (101) 99 11/19/18 16:00 Room Air 11/19/18 15:31 72 11/19/18 15:02 145/81 Intake and Output 11/19/18 11/20/18 18:59 06:59 Intake Total 520 ml 340 ml Output Total 3000 ml Balance 520 ml -2660 ml Intake Oral 520 ml 340 ml Output Urine Total 0 ml Hemodialysis UF 3000 ml Laboratory Tests 11/20/18 03:11: Sodium Level 139, Potassium Level 3.6, Chloride Level 100, Carbon Dioxide Level 26, Anion Gap 13, Blood Urea Nitrogen 23H, Creatinine 11.4H, Estimat Glomerular Filtration Rate , Glucose Level 123H, Calcium Level 9.3, Total Bilirubin 0.6, Aspartate Amino Transf (AST/SGOT) 21, Alanine Aminotransferase (ALT/SGPT) 12, Alkaline Phosphatase 47, Total Protein 7.3, Albumin 3.5, Globulin 3.8 Height (Feet): 5 Height (Inches): 10.00 Weight (Pounds): 135 Objective CV RR Lungs CTA Abd SNT. BS + E No CCE Richmond David MD Nov 20, 2018 13:18
[2018-11-20] MEDS ORDERED: Heparin Sod 1000 units/ml 10ml IV PRN (13:30)
--- NOTE | 2018-11-20 13:58 | NUR ---
RD ASSESSMENT & RECOMMENDATIONS SEE CARE ACTIVITY FOR COMPLETE ASSESSMENT DAILY ESTIMATED NEEDS: Needs based on ESRD, HD/ 63.6kg 30-35 kcals/kg [id number] total kcals 1.2-1.8 g protein/kg 76-113 g total protein 1L/day per MD NUTRITION DIAGNOSIS: 1) Increased kcal/prot needs R/T renal dysfunction as evidenced by ESRD dx, on HD. 2) Altered nutrition related lab values R/T ESRD as evidenced by elev creat (11.4), elev BNP. CURRENT DIET:RENAL PO DIET RECOMMENDATIONS: RENAL/ texture as tolerated ADDITIONAL RECOMMENDATIONS: * Calibrated bedscale wt post HD for accurate dry wt * Monitor tolerance to diet/ nausea * Monitor lytes and renal fxn closely * Add snacks as tolerated in b/w meals
--- NOTE | 2018-11-20 14:08 | GI Initial Consult Note ---
History of Present Illness General Date patient seen: Nov 20, 2018 Time patient seen: 14:03 Reason for Hospitalization: Chest Pain Referring physician: MORENO Reason for Consultation: N/V Present Illness HPI This patient complains of chest pain since 10 AM this morning. He states that the pain is constant but is improved now. He was brought in by EMS and given nitroglycerin spray and aspirin en route. He states that he also notes that his blood pressure was elevated. He does take his regular blood pressure medications. He denies recent illness. He denies cough or congestion. He denies fever or chills. He denies nausea or vomiting. He denies headache. He denies abdominal pain. He has no other complaints. GI consulted for reported nausea and vomiting. Patient seen, awake oriented x4 no apparent distress. Reports some mild nausea, no emesis at this time. Abdomen soft, nondistended, nontender. Denies any abdominal pain; diarrhea or constipation. Patient reported history of endoscopy approximately 5+ years ago , but unsure of results. Denies any history of colonoscopy. Labs reviewed; hemoglobin 9.7, troponin 0.227. No leukocytosis, no transaminitis. Home Meds Active Scripts Sennosides (SENNA-GEN) 8.6 Mg Tablet, 8.6 MG ORAL BID for 30 Days, TAB Prov:Richmond David MD 10/03/18 Magnesium Hydroxide (Milk of Magnesia) 400 Mg/5 Ml Oral.susp, 30 ML ORAL TID for 30 Days, ML Prov:Richmond David MD 10/03/18 Labetalol HCl (Labetalol HCl) 200 Mg Tablet, 500 MG ORAL Q12HR for 30 Days, TAB Prov:Richmond David MD 10/03/18 Reported Medications Hydrocodone Bit/Acetaminophen 5-325* (NORCO 5-325 TABLET*) 1 Each Tablet, 1 TAB ORAL Q4H PRN for For Pain, #30 TAB 1 Refill 07/28/15 Amlodipine Besylate* (AMLODIPINE BESYLATE*) 10 Mg Tablet, 10 MG ORAL DAILY, TAB 07/26/15 Tamsulosin Hcl (TAMSULOSIN HCL*) 0.4 Mg Cap.er.24h, 0.4 MG ORAL BEDTIME, CAP 07/26/15 Vitamin B Cmplx/Vit C/Folic AC (Nephro-Manan Tablet) 1 Tab Tab, 1 TAB ORAL DAILY , #30 TAB 0 Refills 07/26/15 Med list reviewed/reconciled: Yes Allergies: Coded Allergies: No Known Allergies (Unverified , 06/16/14) Patient History History Provided By: Patient, Medical Record PMH Narrative Past Medical History: see triage record, DM, HTN, renal disease, dialysis Social History: Denies: smoking, alcohol use, drug use Reviewed Nursing Documentation: PMH: Agreed; PSxH: Agreed Nursing Documentation-PMH Hx Cardiac Problems: Yes Hx Hypertension: Yes Hx Diabetes: Yes Hx Cancer: No Hx Gastrointestinal Problems: No Hx Neurological Problems: No Social History: Denies: smoking, alcohol use, drug use, other Review of Systems All Other Systems: negative except mentioned in HPI Physical Exam Vital Signs Date Time Temp Pulse Resp B/P (MAP) Pulse Ox O2 Delivery O2 Flow Rate FiO2 11/18/18 15:12 97.9 109 18 199/100 90 Room Air Sp02 EP Interpretation: reviewed, normal Labs Laboratory Tests Test 11/20/18 03:11 Sodium Level 139 MMOL/L (136-145) Potassium Level 3.6 MMOL/L (3.5-5.1) Chloride Level 100 MMOL/L (98-107) Carbon Dioxide Level 26 MMOL/L (21-32) Anion Gap 13 mmol/L (5-15) Blood Urea Nitrogen 23 mg/dL (7-18) H Creatinine 11.4 MG/DL (0.55-1.30) H Estimat Glomerular Filtration Rate mL/min (>60) Glucose Level 123 MG/DL (74-106) H Calcium Level 9.3 MG/DL (8.5-10.1) Total Bilirubin 0.6 MG/DL (0.2-1.0) Aspartate Amino Transf (AST/SGOT) 21 U/L (15-37) Alanine Aminotransferase (ALT/SGPT) 12 U/L (12-78) Alkaline Phosphatase 47 U/L (46-116) Total Protein 7.3 G/DL (6.4-8.2) Albumin 3.5 G/DL (3.4-5.0) Globulin 3.8 g/dL General Appearance: well appearing, no apparent distress, alert Head: normocephalic EENT: PERRL/EOMI, normal ENT inspection Neck: supple Respiratory: normal breath sounds, no respiratory distress Cardiovascular: normal rate Gastrointestinal: normal inspection, non tender, soft, normal bowel sounds, non -distended Rectal: deferred Genitourinary: deferred Musculoskeletal: normal inspection, back normal Neurologic: normal inspection, alert, oriented x3, responsive Psychiatric: normal inspection, judgement/insight normal, memory normal Skin: normal inspection, normal color, no rash, warm/dry, palpation normal, well hydrated Lymphatic: normal inspection, no adenopathy Current Medications Current Medications Medications (Trade) Dose Ordered Sig/Roel Route PRN Reason Start Time Stop Time Status Last Admin Dose Admin Acetaminophen/ Hydrocodone Bitart (Jeremiah 5/325) 1 tab Q4H PRN ORAL Moderate Pain (Pain Scale 4-6) 11/18/18 21:45 11/25/18 21:44 Amlodipine Besylate (Norvasc) 10 mg DAILY ORAL 11/19/18 09:00 12/19/18 08:59 11/20/18 08:48 Aspirin (Ecotrin) 81 mg DAILY ORAL 11/19/18 09:00 12/19/18 08:59 11/20/18 08:47 Clonidine HCl (Catapres TTS-3) 1 patch QWEEK TDERMAL 11/19/18 15:00 12/19/18 14:59 11/19/18 15:02 Heparin Sodium (Porcine) (Heparin 5000 units/ml) 5,000 units EVERY 12 HOURS SUBQ 11/19/18 21:00 12/19/18 20:59 11/20/18 08:58 Heparin Sodium (Porcine) (Heparin Sod 1000 units/ml 10ml) 2,000 unit ONCE PRN IV FOR HD USE ONLY 11/20/18 13:30 11/21/18 23:59 Isosorbide Dinitrate (Isordil) 20 mg TID ORAL 11/20/18 09:00 12/20/18 08:59 11/20/18 08:47 Labetalol HCl (Normodyne) 300 mg BID ORAL 11/19/18 09:00 12/19/18 08:59 11/20/18 08:46 Magnesium Hydroxide (Mom) 30 ml Q8H PRN ORAL Constipation 11/18/18 21:45 12/18/18 21:44 Minoxidil (Loniten) 5 mg Q12HR ORAL 11/19/18 21:00 12/19/18 08:59 11/20/18 08:48 Ondansetron HCl (Zofran) 4 mg Q6H PRN IVP Nausea & Vomiting 11/20/18 12:00 12/20/18 11:59 11/20/18 11:56 Pantoprazole (Protonix) 40 mg DAILY ORAL 11/21/18 09:00 12/21/18 08:59 Sennosides (Senokot) 8.6 mg BID ORAL 11/19/18 09:00 12/19/18 08:59 11/20/18 08:48 Sevelamer Carbonate (Renvela) 2,400 mg THREE TIMES A DAY ORAL 11/19/18 09:00 12/19/18 08:59 11/20/18 08:47 Sodium Chloride 1,000 ml @ 500 mls/hr Q2H PRN IVLG sbp<90 during hd 11/20/18 13:18 11/21/18 23:59 Sucralfate (Carafate) 1 gm FOUR TIMES A DAY ORAL 11/20/18 18:00 12/20/18 17:59 Tamsulosin HCl (Flomax) 0.4 mg BEDTIME ORAL 11/18/18 22:15 12/18/18 22:14 11/19/18 22:38 Vitamin B Complex/ Vit C/Folic Acid (Nephrovite) 1 tab DAILY ORAL 11/19/18 09:00 12/19/18 08:59 11/20/18 08:47 GI: Plan Problems: (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 Gregg. Thank you for this patient referral, we will follow. The patient was seen and examined at bedside and all new and available data was reviewed in the patients chart. I agree with the above findings, impression and plan. (Patient seen earlier today. Signature stamp does not reflect patient encounter time.). - MD [facility] Nov 20, 2018 14:08
--- NOTE | 2018-11-20 14:10 | NUR ---
RD ASSESSMENT & RECOMMENDATIONS SEE CARE ACTIVITY FOR COMPLETE ASSESSMENT DAILY ESTIMATED NEEDS: Needs based on ESRD, HD/ 61kg 30-35 kcals/kg 1229-3970 total kcals 1.2-1.8 g protein/kg 73-110 g total protein 1L/day per MD NUTRITION DIAGNOSIS: 1) Increased kcal/prot needs R/T renal dysfunction as evidenced by ESRD dx, on HD, and generalized mild to moderate wasting, pt is 88% of [place] Body Weight. 2) Altered nutrition related lab values R/T ESRD as evidenced by elev creat (11.4), elev BNP. CURRENT DIET:RENAL PO DIET RECOMMENDATIONS: RENAL/ texture as tolerated ADDITIONAL RECOMMENDATIONS: * Calibrated bedscale wt post HD for accurate dry wt * Monitor tolerance to diet/ nausea * Monitor lytes and renal fxn closely * Add snacks as tolerated in b/w meals
[2018-11-20 16:00] VITALS: BP 120/64
--- NOTE | 2018-11-20 16:00 | NUR ---
NURSE NOTES: Patient refused medications ordered for 1300 and 1800 due to feeling nauseous. Patient was given Zofran 4mg (2ml) for nausea at 1156 and again at 1756. Patient was educated on consequences of refusing medication and still refused to take medications.
[2018-11-20] MEDS: Sucralfate 1gm tab ORAL SCH ×2 (18:00→21:00)
--- NOTE | 2018-11-20 19:29 | NUR ---
HAND-OFF: Report given to James Louise RN.
--- NOTE | 2018-11-20 19:30 | NUR ---
NURSE NOTES:Received pt awake and alert. SR on the monitor Bp stable. Afebrile. Left arm AV shunt with good bruit. Pt in pleasant and in good spirit at this time. No c/o nausea nor vomiting, No CP nor SOB- will continue to monitor.
[2018-11-20 20:00] VITALS: BP 130/85
[2018-11-20] MEDS: Tamsulosin 0.4mg cap ORAL SCH (21:00)
--- NOTE | 2018-11-20 21:00 | NUR ---
NURSE NOTES:Pt refused meds stating he doesnt need it- Explained to pt the importance of his medication- but still refused. Pt been refusing his meds, per am RN Md garfield aware.
[2018-11-21] VITALS: BP 115/69
--- NOTE | 2018-11-21 02:00 | NUR ---
NURSE NOTES:Requesting for snacks - Food was served.
[2018-11-21 04:00] VITALS: BP 142/81
--- NOTE | 2018-11-21 04:45 | Progress Note ---
DATE: 11/20/2018 CARDIOLOGY PROGRESS NOTE SUBJECTIVE: The patient continues to have vomiting. No shortness of breath. No chest pain. Troponin levels were elevated, but no clinical signs of acute coronary insufficiency. OBJECTIVE: VITAL SIGNS: Blood pressure 108/66, pulse 79, and respirations 20. LUNGS: Clear. CARDIAC: Regular. ABDOMEN: Soft. EXTREMITIES: No edema. LABORATORY DATA: Sodium 139, potassium 3.6, bicarbonate 26, BUN 23, and creatinine 11.4. IMPRESSION: 1. False positive troponin levels likely reflective of chronic ischemic heart disease and there is no clinical evidence to support an acute myocardial infarction. 2. End-stage renal disease. 3. Iron deficiency anemia. 4. Anemia of chronic kidney disease. 5. Abdominal pain, nausea, and vomiting. 6. Malignant hypertension, improved. PLAN: 1. Hemodialysis with ultrafiltration. 2. Antiemetics. 3. Follow up cardiac enzymes. 4. Maintain antianginal and antihypertensive regimen. 5. If no signs of GI bleeding, antiplatelet therapy long-term. 6. Continue hemodialysis with ultrafiltration. Jesu Fitzgerald M.D. DR: NGOZI JOB#: [id number] CC:
--- NOTE | 2018-11-21 05:00 | NUR ---
NURSE NOTES:Refused bath this am. On SR VSS,. No SOB noted.
[2018-11-21 06:05] LABS: ALANINE AMINOTRANSFERASE 13 U/L (12-78); ALBUMIN 3.6 G/DL (3.4-5.0); ALBUMIN/GLOBULIN RATIO 0.9 (1.0-2.7); ALKALINE PHOSPHATASE 50 U/L (46-116); ANION GAP 14 mmol/L (5-15); ASPARTATE AMINO TRANSFERASE 16 U/L (15-37); BILIRUBIN,TOTAL 0.5 MG/DL (0.2-1.0); BLOOD UREA NITROGEN 35 mg/dL (7-18); CALCIUM 9.4 MG/DL (8.5-10.1); CARBON DIOXIDE 26 MMOL/L (21-32); CHLORIDE 98 MMOL/L (98-107); CREATININE 14.6 MG/DL (0.55-1.30); FERRITIN 668 NG/ML (8-388); SODIUM 138 MMOL/L (136-145)
[2018-11-21 06:28] LABS: % IRON SATURATION 18 % (15-50); IRON 33 ug/dL (50-175); TOTAL IRON BINDING CAPACITY 181 ug/dL (250-450)
--- NOTE | 2018-11-21 07:48 | NUR ---
HAND-OFF: Report given to Amanda SEE.
--- NOTE | 2018-11-21 07:50 | NUR ---
NURSE NOTES: Received patient from ESA Forrest. Patient is awake, alert and orientedx3, resting in bed. On room air. SR noted on the monitor. No acute distress noted. Denies nausea. Noted with left upper arm AV shunt. Left forearm 18G intact and patent. Bed in lowest position, locked, side rails upx2. Call light within reach. Will continue to monitor.
[2018-11-21 08:00] VITALS: BP 144/75
[2018-11-21] MEDS: Labetalol 200mg tab ORAL SCH ×2 (09:00→17:16)
[2018-11-21] MEDS: Minoxidil 2.5mg tab ORAL SCH ×2 (09:00→20:18)
[2018-11-21] MEDS: Sennosides 8.6mg tab ORAL SCH ×2 (09:51→18:20)
[2018-11-21] MEDS: Aspirin EC 81mg tab ORAL SCH (09:51)
[2018-11-21] MEDS: Sucralfate 1gm tab ORAL SCH (09:52)
[2018-11-21] MEDS: Nephrovite tab (Rena-Vite) ORAL SCH (09:52)
[2018-11-21] MEDS: Heparin 5000 units/ml inj SUBQ SCH ×2 (09:55→20:21)
--- NOTE | 2018-11-21 10:58 | GI Progress Note ---
Assessment/Plan Problems: (1) Anemia in chronic kidney disease ICD Codes: N18.9 - Chronic kidney disease, unspecified; D63.1 - Anemia in chronic kidney disease SNOMED: 589318321 (2) Abdominal pain ICD Codes: R10.9 - Unspecified abdominal pain SNOMED: 01161409 (3) Iron deficiency anemia secondary to blood loss (chronic) ICD Codes: D50.0 - Iron deficiency anemia secondary to blood loss (chronic) SNOMED: 11144160, 303279061 (4) Constipation ICD Codes: K59.00 - Constipation, unspecified SNOMED: 92648280 (5) GERD (gastroesophageal reflux disease) ICD Codes: K21.9 - Gastro-esophageal reflux disease without esophagitis SNOMED: 701101280 Status: stable Status Narrative Discussed with Dr. Gregg Assessment/Plan Anemia workup reviewed No plans for GI procedures at this time Follow-up cardiology recommendations given elevated troponin levels Zofran as needed, Reglan for persistent vomiting anemia work up OB stool r/o GI bleed monitor H&H, prn transfusions bowel regime ppi dc carafate, patient refused fu labs The patient was seen and examined at bedside and all new and available data was reviewed in the patients chart. I agree with the above findings, impression and plan. (Patient seen earlier today. Signature stamp does not reflect patient encounter time.). - Rohan Gregg MD Subjective Subjective Nausea resolved Refusing to take Carafate due to pill size Objective Last 24 Hour Vital Signs Date Time Temp Pulse Resp B/P (MAP) Pulse Ox O2 Delivery O2 Flow Rate FiO2 11/21/18 09:51 144/75 11/21/18 08:00 84 11/21/18 08:00 97.9 85 20 144/75 (98) 97 11/21/18 08:00 Room Air 11/21/18 04:00 80 11/21/18 04:00 Room Air 11/21/18 04:00 98.2 79 20 142/81 (101) 97 11/21/18 00:00 Room Air 11/21/18 00:00 98.2 81 20 115/69 (84) 97 11/20/18 21:00 136/85 11/20/18 20:00 82 11/20/18 20:00 Room Air 11/20/18 20:00 98.5 82 20 130/85 (100) 98 11/20/18 18:00 108/66 11/20/18 18:00 79 108/66 11/20/18 16:00 97.3 76 20 120/64 (82) 98 11/20/18 16:00 Room Air 11/20/18 15:32 74 11/20/18 13:00 120/68 11/20/18 12:00 97.9 79 20 120/68 (85) 98 11/20/18 12:00 Room Air 11/20/18 11:41 85 Intake and Output 11/20/18 11/21/18 18:59 06:59 Intake Total 600 ml 270 ml Output Total 0 ml Balance 600 ml 270 ml Intake Oral 600 ml 270 ml Output Urine Total 0 ml Laboratory Tests Test 11/21/18 03:45 Reticulocyte Count 0.9 % (0.0-2.0) Prothrombin Time 10.7 SEC (9.30-11.50) Prothromb Time International Ratio 1.0 (0.9-1.1) Activated Partial Thromboplast Time 33 SEC (23-33) Sodium Level 138 MMOL/L (136-145) Potassium Level 4.0 MMOL/L (3.5-5.1) Chloride Level 98 MMOL/L (98-107) Carbon Dioxide Level 26 MMOL/L (21-32) Anion Gap 14 mmol/L (5-15) Blood Urea Nitrogen 35 mg/dL (7-18) H Creatinine 14.6 MG/DL (0.55-1.30) H Estimat Glomerular Filtration Rate mL/min (>60) Glucose Level 91 MG/DL (74-106) Calcium Level 9.4 MG/DL (8.5-10.1) Magnesium Level 2.4 MG/DL (1.8-2.4) Iron Level 33 ug/dL (50-175) L Total Iron Binding Capacity 181 ug/dL (250-450) L Percent Iron Saturation 18 % (15-50) Unsaturated Iron Binding 148 ug/dL (112-346) Ferritin 668 NG/ML (8-388) H Total Bilirubin 0.5 MG/DL (0.2-1.0) Aspartate Amino Transf (AST/SGOT) 16 U/L (15-37) Alanine Aminotransferase (ALT/SGPT) 13 U/L (12-78) Alkaline Phosphatase 50 U/L (46-116) Troponin I 0.137 ng/mL (0.000-0.056) Total Protein 7.5 G/DL (6.4-8.2) Albumin 3.6 G/DL (3.4-5.0) Globulin 3.9 g/dL Albumin/Globulin Ratio 0.9 (1.0-2.7) L Carcinoembryonic Antigen Pending Vitamin B12 Level 1004 PG/ML (193-986) H Folate 19.2 NG/ML (8.6-58.9) Thyroid Stimulating Hormone (TSH) 2.981 uiU/mL (0.358-3.740) Free Thyroxine 1.04 NG/DL (0.76-1.46) Height (Feet): 5 Height (Inches): 10.00 Weight (Pounds): 134 General Appearance: WD/WN, no apparent distress, alert Cardiovascular: normal rate Respiratory/Chest: normal breath sounds, no respiratory distress Abdominal Exam: normal bowel sounds, non tender, soft Extremities: normal range of motion, non-tender Raul Owens NP Nov 21, 2018 10:58
--- NOTE | 2018-11-21 11:36 | Nephrology Progress Note ---
Assessment/Plan Plan Nausea - GI to advise. On PPI + Carafate CP - Cardiac W/U. Malignant HTN - on multiple potent Rx. ESRD - HD TTS. ambulate Subjective Subjective Still nauseated! Objective Objective Last 24 Hour Vital Signs Date Time Temp Pulse Resp B/P (MAP) Pulse Ox O2 Delivery O2 Flow Rate FiO2 11/21/18 09:51 144/75 11/21/18 08:00 84 11/21/18 08:00 97.9 85 20 144/75 (98) 97 11/21/18 08:00 Room Air 11/21/18 04:00 80 11/21/18 04:00 Room Air 11/21/18 04:00 98.2 79 20 142/81 (101) 97 11/21/18 00:00 Room Air 11/21/18 00:00 98.2 81 20 115/69 (84) 97 11/20/18 21:00 136/85 11/20/18 20:00 82 11/20/18 20:00 Room Air 11/20/18 20:00 98.5 82 20 130/85 (100) 98 11/20/18 18:00 108/66 11/20/18 18:00 79 108/66 11/20/18 16:00 97.3 76 20 120/64 (82) 98 11/20/18 16:00 Room Air 11/20/18 15:32 74 11/20/18 13:00 120/68 11/20/18 12:00 97.9 79 20 120/68 (85) 98 11/20/18 12:00 Room Air 11/20/18 11:41 85 Intake and Output 11/20/18 11/21/18 18:59 06:59 Intake Total 600 ml 270 ml Output Total 0 ml Balance 600 ml 270 ml Intake Oral 600 ml 270 ml Output Urine Total 0 ml Laboratory Tests 11/21/18 03:45: Reticulocyte Count 0.9, Prothrombin Time 10.7, Prothromb Time International Ratio 1.0, Activated Partial Thromboplast Time 33, Sodium Level 138, Potassium Level 4.0, Chloride Level 98, Carbon Dioxide Level 26, Anion Gap 14, Blood Urea Nitrogen 35H, Creatinine 14.6H, Estimat Glomerular Filtration Rate , Glucose Level 91, Calcium Level 9.4, Magnesium Level 2.4, Iron Level 33L, Total Iron Binding Capacity 181L, Percent Iron Saturation 18, Unsaturated Iron Binding 148 , Ferritin 668H, Total Bilirubin 0.5, Aspartate Amino Transf (AST/SGOT) 16, Alanine Aminotransferase (ALT/SGPT) 13, Alkaline Phosphatase 50, Troponin I 0.137H, Total Protein 7.5, Albumin 3.6, Globulin 3.9, Albumin/Globulin Ratio 0.9L, Carcinoembryonic Antigen [Pending], Vitamin B12 Level 1004H, Folate 19.2, Thyroid Stimulating Hormone (TSH) 2.981, Free Thyroxine 1.04 Height (Feet): 5 Height (Inches): 10.00 Weight (Pounds): 134 Objective CV RR Lungs CTA Abd SNT. BS + E No CCE Richmond David MD Nov 21, 2018 11:36
[2018-11-21 12:00] VITALS: BP 105/55
[2018-11-21 13:18] LABS: BASOPHILS % (AUTO) 0.7 % (0.0-2.0); EOSINOPHILS % (AUTO) 0.8 % (0.0-3.0); HEMATOCRIT 41.8 % (42.0-52.0); HEMOGLOBIN 13.1 G/DL (14.2-18.0); LYMPHOCYTES % (AUTO) 9.2 % (20.0-45.0); MEAN CORPUSCULAR VOLUME 92 FL (80-99); MONOCYTES % (AUTO) 8.4 % (1.0-10.0); NEUTROPHILS % (AUTO) 80.9 % (45.0-75.0); PLATELET COUNT 190 K/UL (150-450); RED BLOOD COUNT 4.53 M/UL (4.70-6.10); WHITE BLOOD COUNT 10.4 K/UL (4.8-10.8)
[2018-11-21 16:00] VITALS: BP 126/68
--- NOTE | 2018-11-21 16:38 | NUR ---
NURSE NOTES: Patient denies nausea at this time. Hemodialysis ongoing. Dialysis nurse at bedside.
--- NOTE | 2018-11-21 19:16 | NUR ---
HAND-OFF: Report given to ESA Hirsch. Patient in stable condition.
--- NOTE | 2018-11-21 19:16 | NUR ---
NURSE NOTES: Received patient from NANDO CORDERO RN. Patient is stable and resting in bed. Patient states he is okay and does not need anything at the moment. Bed on lowest position and alarm is activated. Will continue plan of care.
[2018-11-21 20:00] VITALS: BP 110/66
[2018-11-21] MEDS: Tamsulosin 0.4mg cap ORAL SCH (20:18)
[2018-11-22] VITALS: BP 132/67
[2018-11-22 04:00] VITALS: BP 126/69
--- NOTE | 2018-11-22 07:20 | NUR ---
HAND-OFF: Report given to ESA LACEY.
[2018-11-22 08:00] VITALS: BP 104/58
--- NOTE | 2018-11-22 08:05 | General Progress Note ---
Assessment/Plan Problem List: (1) GERD (gastroesophageal reflux disease) ICD Codes: K21.9 - Gastro-esophageal reflux disease without esophagitis SNOMED: 999031530 (2) Constipation ICD Codes: K59.00 - Constipation, unspecified SNOMED: 82155087 (3) ESRD needing dialysis ICD Codes: N18.6 - End stage renal disease SNOMED: 99137323 (4) Anemia in chronic kidney disease ICD Codes: N18.9 - Chronic kidney disease, unspecified; D63.1 - Anemia in chronic kidney disease SNOMED: 312744897 (5) Abdominal pain ICD Codes: R10.9 - Unspecified abdominal pain SNOMED: 97625890 (6) Iron deficiency anemia secondary to blood loss (chronic) ICD Codes: D50.0 - Iron deficiency anemia secondary to blood loss (chronic) SNOMED: 19689774, 638730407 (7) Hypertension ICD Codes: I10 - Essential (primary) hypertension SNOMED: 07903095 Assessment/Plan Anemia workup reviewed No plans for GI procedures at this time Follow-up cardiology recommendations given elevated troponin levels Zofran as needed, Reglan for persistent vomiting OB stool r/o GI bleed>> reordered start colace nad miralax monitor H&H, prn transfusions ppi dc carafate, patient refused fu labs Subjective ROS Limited/Unobtainable: Yes Allergies: Coded Allergies: No Known Allergies (Unverified , 06/16/14) Subjective no vomiting eating Objective Last 24 Hour Vital Signs Date Time Temp Pulse Resp B/P (MAP) Pulse Ox O2 Delivery O2 Flow Rate FiO2 11/22/18 05:00 Room Air 11/22/18 04:00 98.6 87 18 126/69 (88) 97 11/22/18 03:55 91 11/22/18 00:00 98.8 81 16 132/67 (88) 98 11/21/18 23:51 94 11/21/18 20:18 110/66 11/21/18 20:00 98.3 85 18 110/66 (81) 100 11/21/18 20:00 Room Air 11/21/18 19:03 85 11/21/18 17:16 68 126/68 11/21/18 17:15 126/68 11/21/18 16:00 98.9 68 21 126/68 (87) 95 11/21/18 16:00 Room Air 11/21/18 16:00 80 11/21/18 12:25 105/55 11/21/18 12:00 Room Air 11/21/18 12:00 78 11/21/18 12:00 98.9 74 18 105/55 (72) 95 11/21/18 09:51 144/75 11/21/18 08:00 84 11/21/18 08:00 97.9 85 20 144/75 (98) 97 11/21/18 08:00 Room Air Intake and Output 11/21/18 11/22/18 19:00 07:00 Intake Total 360 ml 150 ml Output Total 2500 ml 0 ml Balance -2140 ml 150 ml Intake Oral 360 ml 150 ml Output Urine Total 0 ml 0 ml Peritoneal Dialysis UF 2500 ml Height (Feet): 5 Height (Inches): 10.00 Weight (Pounds): 135 General Appearance: alert EENT: normal ENT inspection Neck: supple Cardiovascular: normal rate Respiratory/Chest: decreased breath sounds Abdomen: normal bowel sounds, non tender, soft Extremities: non-tender Rohan Gregg MD Nov 22, 2018 08:05
[2018-11-22] MEDS: Minoxidil 2.5mg tab ORAL SCH (09:43)
[2018-11-22] MEDS: Docusate 100mg cap ORAL SCH ×2 (09:44→18:01)
[2018-11-22] MEDS: Nephrovite tab (Rena-Vite) ORAL SCH (09:44)
[2018-11-22] MEDS: Sennosides 8.6mg tab ORAL SCH ×2 (09:45→18:00)
[2018-11-22] MEDS: Aspirin EC 81mg tab ORAL SCH (09:46)
[2018-11-22] MEDS: Labetalol 200mg tab ORAL SCH ×2 (09:47→18:00)
[2018-11-22] MEDS: Heparin 5000 units/ml inj SUBQ SCH (09:48)
[2018-11-22 12:00] VITALS: BP 104/45
--- NOTE | 2018-11-22 13:00 | NUR ---
NURSE NOTES: DR STILL CAME TO SEE THE PT AND MADE AWARE AND NOTIFIED REGARDING LOW B/P 92/50 AND HELD ISORDIL 20MG P.O AND PT REFUSED TO TO TAKE Laron BLEDSOE STATED IS OK , " I WILL CHANGE SOME OF HIS MEDICATION AND HE WILL BE DISCHARGE TODAY THIS EVENING DAUGHTER IS AWARE." WILL CONT TO MONITOR.
--- NOTE | 2018-11-22 13:05 | Nephrology Progress Note ---
Assessment/Plan Plan Nausea - GI to advise. On PPI + Carafate CP - Cardiac W/U. Malignant HTN - on multiple potent Rx. ESRD - HD TTS. ambulate Subjective Subjective No c/o Objective Objective Last 24 Hour Vital Signs Date Time Temp Pulse Resp B/P (MAP) Pulse Ox O2 Delivery O2 Flow Rate FiO2 11/22/18 12:00 Room Air 11/22/18 09:47 90 104/58 11/22/18 09:46 90 104/58 11/22/18 09:45 104/58 11/22/18 09:43 104/58 11/22/18 08:00 90 11/22/18 08:00 Room Air 11/22/18 08:00 98.9 92 20 104/58 (73) 97 11/22/18 05:00 Room Air 11/22/18 04:00 98.6 87 18 126/69 (88) 97 11/22/18 03:55 91 11/22/18 00:00 98.8 81 16 132/67 (88) 98 11/21/18 23:51 94 11/21/18 20:18 110/66 11/21/18 20:00 98.3 85 18 110/66 (81) 100 11/21/18 20:00 Room Air 11/21/18 19:03 85 11/21/18 17:16 68 126/68 11/21/18 17:15 126/68 11/21/18 16:00 98.9 68 21 126/68 (87) 95 11/21/18 16:00 Room Air 11/21/18 16:00 80 Intake and Output 11/21/18 11/22/18 18:59 06:59 Intake Total 360 ml 150 ml Output Total 2500 ml 0 ml Balance -2140 ml 150 ml Intake Oral 360 ml 150 ml Output Urine Total 0 ml 0 ml Peritoneal Dialysis UF 2500 ml Height (Feet): 5 Height (Inches): 10.00 Weight (Pounds): 135 Objective CV RR Lungs CTA Abd SNT. BS + E No CCE Richmond David MD Nov 22, 2018 13:05
[2018-11-22] MEDS ORDERED: FLOMAX0.4 MG ORAL (13:16)
[2018-11-22] MEDS ORDERED: PROTONIX40 MG ORAL (13:16)
[2018-11-22] MEDS ORDERED: SENNA8.6 M2 ORAL (13:16)
[2018-11-22] MEDS ORDERED: NEPHROVITE1 TAB ORAL (13:16)
[2018-11-22] MEDS ORDERED: NORMODYNE200 MG ORAL (13:16)
[2018-11-22] MEDS ORDERED: ISOSORBIDE DINI10 MG ORAL (13:16)
[2018-11-22] MEDS ORDERED: ASPIRIN EC81 MG ORAL (13:16)
[2018-11-22] MEDS ORDERED: DOK100 M1 ORAL (13:16)
[2018-11-22] MEDS ORDERED: CATAPRES-TTS 31 EACH TDERMAL (13:16)
[2018-11-22] MEDS ORDERED: RENVELA800 MG ORAL (13:16)
[2018-11-22] MEDS ORDERED: NORVASC10 MG ORAL (13:16)
--- NOTE | 2018-11-22 14:31 | Cardiology Report ---
APPROVED REPORT EKG Measurement Heart [id number] [id number] Sinus rhythm with premature atrial complexes Right bundle branch block Voltage criteria for left ventricular hypertrophy Inferior infarct, age undetermined Abnormal ECG
[2018-11-22 16:00] VITALS: BP 119/60
[2018-11-22 18:01] VITALS: BP 119/60
[2018-11-22] MEDS ORDERED: NS 500ML ONE (18:06)
[2018-11-22] MEDS ORDERED: Miralax 17gm pkt ORAL SCH (21:00)
--- NOTE | 2018-11-23 01:45 | Progress Note ---
DATE: 11/22/2018 CARDIOLOGY PROGRESS NOTE SUBJECTIVE: The patient is comfortable with no distress. Blood pressure range now at 104/58 to 132/67, heart rate in the 70 to 90 range. The patient is on hemodialysis Sunday. OBJECTIVE: LUNGS: Clear. CARDIAC: Regular. Normal S1, S2 with a fourth heart sound. EXTREMITIES: Without edema. Palpable bruit over AV fistula. LABORATORY DATA: Most recent troponin level from yesterday is 1.137. IMPRESSION: 1. Chronic ischemic heart disease. 2. Chronic stable angina. 3. Microvascular coronary artery disease. 4. Hypertensive urgency, resolved. 5. Hypertensive heart disease with controlled blood pressure. 6. Diastolic dysfunction with chronic congestive heart failure. 7. End-stage renal disease, on hemodialysis. 8. Gastroesophageal reflux disease, on PPI therapy with Carafate. PLAN: 1. Continue nitrates, anti-platelet drugs, statin, and current antihypertensive regimen. 2. Outpatient followup. 3. Myocardial perfusion scan to be considered for any clinical signs of acute coronary insufficiency in the future. 4. The patient is presently stable on medical management. Jesu Fitzgerald M.D. DR: NGOZI JOB#: [id number] CC:
--- NOTE | 2018-11-23 01:45 | Progress Note ---
DATE: 11/21/2018 CARDIOLOGY PROGRESS NOTE SUBJECTIVE: The patient has no new complaints. Denies chest pain or shortness of breath. OBJECTIVE: VITAL SIGNS: Blood pressure 144/75, pulse 85, respirations 20, and afebrile. Blood pressure range now 120/60 to 144/75. LUNGS: Clear. CARDIAC: Regular. ABDOMEN: Soft. EXTREMITIES: No edema. IMPRESSION: 1. End-stage renal disease, on hemodialysis. 2. Malignant hypertension, now stabilized on current regimen. 3. Hypertensive heart disease with no clinical signs of acute congestive heart failure. 4. Elevated troponin levels, false positive and likely reflective to be chronic ischemic heart disease. 5. No clinical signs of acute myocardial infarction. PLAN: 1. Antiplatelet therapy if no gastrointestinal contraindication. 2. Maintain current cardiovascular regimen. 3. Continue hemodialysis with ultrafiltration for volume management. 4. Consider myocardial perfusion scan if symptoms suggestive of coronary ischemia are noted. Jesu Fitzgerald M.D. DR: NGOZI JOB#: [id number] CC:
--- NOTE | 2018-11-24 07:49 | Discharge Summary ---
Discharge Summary Discharge Summary _ DATE OF ADMISSION: 11/18/2018 DATE OF DISCHARGE: 11/22/2018 DISCHARGED BY: Dr. David REASON FOR ADMISSION: 78 years old male with past medical history of end-stage renal disease , malignant hypertension, benign prostatic hypertrophy, advanced dementia, poor memory due to advanced dementia and noncompliance with medication, presented to emergency department with complaint of chest pain. Patient received nitroglycerin spray with aspirin en route to the hospital. He reported improvement in the chest pain. Upon evaluation in ED noted severely elevated blood pressure 199/100. Heart rate was 109. Pulse oximetry was 90% on room air. Laboratory workup revealed no leukocytosis. BUN 30 ,creatinine 13.1 ,consistent with known history of end-stage renal disease. Glucose 117. Troponin - 0.231. Pro BNP over 25,000. EKG revealed normal sinus rhythm , no acute ischemic changes . Chest x-ray revealed cardiomegaly, but no acute cardiopulmonary pathology. Patient was admitted for further management. CONSULTANTS: nuclear physics professor GI specialist Dr. Gregg [facility]: Patient admitted to direct observational unit. Hemodialysis arranged at the same day with close monitoring of volumes, cardiorenal parameters and electrolytes. Electrolytes corrected as needed. Cardiology consult was requested. Echocardiogram revealed preserved ejection fraction of 65-70% with mild left ventricular hypertrophy. No evidence of pericardial effusion. No evidence of wall motion abnormality. Right ventricular systolic pressure of 44, consistent with mild pulmonary hypertension. Serial troponin were closely followed and showed mild elevation. According to nuclear physics professor, patient had acute myocardial ischemia. Patient started on antiplatelet therapy and nitrates. Antihypertensive regimen was up-titrated and antianginal regimen was instituted. Per nuclear physics professor, troponin levels were falsely positive , likely reflecting chronic ischemic heart disease, and there was no clinical evidence to support acute myocardial infarction. Blood pressure improved with the current anti-hypertensive medication regimen. [employer] recommended to consider myocardial perfusion scan , if patient develops symptoms suggestive of coronary ischemia. No clinical evidence of acute myocardial infarction. [employer] Worker concluded, that patient was presently stable on medical management with antiplatelet therapy, statin , antihypertensive and antianginal medications. Hemodialysis with ultrafiltration was continued with close monitoring of electrolytes, volumes and renal parameters. Patient noted to have abdominal pain with nausea and vomiting. GI specialist followed. Hemoglobin and hematocrit were closely monitored with goal to keep hemoglobin above 7. Prior to discharge hemoglobin 13.1 ,hematocrit 41.8. Stool for occult blood as outpatient recommended. Anemia workup was consistent with anemia of chronic disease /anemia of chronic kidney disease . Ferritin 668. No plans for GI procedure at this time as per GI specialist. Antiemetic provided : Zofran on as needed basis and Reglan for persistent vomiting. Bowel regimen instituted. Patient started on PPI and Carafate. Patient clinically stabilized. No further chest pain. No nausea, no vomiting, able to tolerate diet. Patient was stable for discharge home. Follow-up with outpatient hemodialysis. FINAL DIAGNOSES: Acute myocardial ischemia Hypertensive urgency - resolved Elevated troponin level, likely reflecting chronic ischemic heart disease Chronic stable angina Microvascular coronary artery disease Hypertensive heart disease. Diastolic dysfunction with chronic congestive heart failure End-stage renal disease , on hemodialysis Anemia of chronic kidney disease Gastroesophageal reflux disease Constipation DISCHARGE MEDICATIONS: See Medication Reconciliation list. DISCHARGE INSTRUCTIONS: Patient was discharged home. Follow up with primary care provider in one week. I have been assigned to dictate discharge summary for this account. I was not involved in the patient's management. Guillermina Harris NP Nov 24, 2018 07:49
== END 2018-11-22 18:07 | disposition home or self-care (01) | DRG 302 ==
LOC: EDBD 15:18 → EMR 17:01 → 2W 17:35 → EDBEDREQ 17:57 → 2W 20:02
PROC: 5A1D70Z Performance of Urinary Filtration, Intermittent, Less than 6 Hours Per Day (ICD-10-PCS; principal; 2018-11-19)
DX: I51.3 Intracardiac thrombosis, not elsewhere classified (principal); N18.6 End stage renal disease; I13.11 Hypertensive heart and chronic kidney disease without heart failure, with stage 5 chronic kidney disease, or end stage renal disease; I50.32 Chronic diastolic (congestive) heart failure; I25.9 Chronic ischemic heart disease, unspecified; I25.118 Atherosclerotic heart disease of native coronary artery with other forms of angina pectoris; Z99.2 Dependence on renal dialysis; N40.0 Benign prostatic hyperplasia without lower urinary tract symptoms; Z91.14 Patient's other noncompliance with medication regimen; F03.90 Unspecified dementia, unspecified severity, without behavioral disturbance, psychotic disturbance, mood disturbance, and anxiety; I16.0 Hypertensive urgency; D63.1 Anemia in chronic kidney disease; K21.9 Gastro-esophageal reflux disease without esophagitis; K59.00 Constipation, unspecified; D50.0 Iron deficiency anemia secondary to blood loss (chronic); I27.20 Pulmonary hypertension, unspecified; I25.2 Old myocardial infarction
CPT/HCPCS: 36415; 71045; 80053; 80061; 82378; 82550; 82553; 82607; 82728; 82746; 83540; 83550; 83735; 83880; 84100; 84439; 84443; 84484; 85025; 85044; 85610; 85730; 93005; 93306; 96374; 96375; 99285; J2405